=== PATIENT | female | born 1945 | race Caucasian/White ===

== ENCOUNTER 2019-07-27 18:02 | Inpatient (IN) | payer MEDICARE, BC ==
[2019-07-27] MEDS ORDERED: Ondansetron ODT 4 MG TAB PO PRN (20:16)
[2019-07-27] MEDS ORDERED: Simethicone Chewable 80 MG TAB PO PRN (20:52)
[2019-07-27] MEDS ORDERED: Non-Formulary Item 1 EACH (Acetaminophen [Tylenol] 650 MG) PO PRN (20:52)
[2019-07-27] MEDS: traMADol HCl 50 MG TAB PO PRN (21:22)
[2019-07-27] MEDS: Famotidine 20 MG TAB PO SCH (21:25)
[2019-07-27] MEDS: ALPRAZolam 0.25 MG TAB PO PRN (21:25)
--- NOTE | 2019-07-28 01:44 | HP ---
HISTORY OF PRESENT ILLNESS: The patient is a 73-year-old white female with a long history of multiple medical problems including atrial fibrillation, ischemic cardiomyopathy, systolic congestive heart failure, who has had a several month history of multiple episodes of lower GI hemorrhage requiring transfusion and ultimately requiring a colonoscopy with complication of perforation of the sigmoid colon with subsequent feculent peritonitis requiring emergency surgery, a sigmoid colostomy and a wound VAC placement. She did develop septic shock and required a long hospitalization, but recovered from this and was transferred to [facility], where she did cooperate with therapy and was improving with adequate wound care and colostomy care. She was discharged home; however, on her routine medications of furosemide 40 mg daily and warfarin 2 mg daily. She did, however, developed significant exacerbation of her congestive heart failure requiring readmission to [facility] for IV diuresis with subsequent significant diuresis improvement in her dyspnea, but with worsening of her significant deconditioning. She has not had any further episodes of sepsis and has had a well-functioning colostomy and wound VAC. She is admitted to [facility] at this time for continued PT/OT and wound care. PAST MEDICAL HISTORY: As mentioned above, remarkable for atrial fibrillation, coronary artery disease, status post multiple stents. Systolic heart failure with ejection fraction 30%. Diverticulitis. Breast cancer. PAST SURGICAL HISTORY: Positive for defibrillator placement, aortic valve replacement, and multiple coronary stents. ALLERGIES: SHE IS ALLERGIC TO CODEINE AND VANCOMYCIN. REVIEW OF SYSTEMS: HEENT: She denies any headaches, dizziness, change in vision, hearing hoarseness, or dysphagia. PULMONARY: She denies cough, sputum production, pneumonia, asthma, or tuberculosis. CARDIOVASCULAR: She denies any chest pain. Has 1 to 2 pillow orthopnea. Has persistent, but decreased edema. Has noticed no palpitations. GASTROINTESTINAL: She denies nausea, or vomiting. She has minimal abdominal pain, has well-functioning colostomy. GENITOURINARY: She denies dysuria, hematuria, or nocturia. MUSCULOSKELETAL: She has significant weakness of all extremities with inability to maintain ADLs. PHYSICAL EXAMINATION: GENERAL: The patient is a morbidly obese white female, lying in bed, on oxygen, in no distress at rest. Oriented x3 and cooperative. VITAL SIGNS: Showed to have a blood pressure of 110/60, pulse is 75. She is afebrile. HEENT: Pupils are equal, round, and reactive to light and accommodation. Sclerae anicteric. Conjunctivae pale. Oral mucous membranes well hydrated. NECK: Supple. There are no nodes or masses. JVP is not elevated. LUNGS: Clear with decreased breath sounds in the bases. CARDIAC: Showed regular rhythm. There is a prosthetic aortic valve sound with slight murmur. ABDOMEN: Soft with minimal left lower quadrant tenderness. Well-functioning sigmoid colostomy and a small wound VAC medial to this. MUSCULOSKELETAL: There is significant obesity and edema of all extremities. She is unable to abduct her left shoulder, status post recent shoulder surgery. NEUROLOGIC: Cranial nerves intact. Deep tendon reflex 2+ and equal. Absent Babinski. LABORATORY DATA: EKG pending. Medication reconciliation has not been done as of yet. ASSESSMENT: 1. Ischemic cardiomyopathy with soft systolic congestive heart failure, 30% ejection fraction with recent decompensation, now on oral torsemide after IV torsemide with significant diuresis. 2. History of aortic valve replacement, on warfarin anticoagulation. 3. History of atrial fibrillation with apparent regular rhythm at this time. 4. Well-functioning colostomy with minimal tenderness. No evidence of bleeding. 5. Abdominal wound with wound VAC in place, functioning well. Minimal drainage. 6. Coronary artery disease with no evidence of recurrent angina. 7. History of diverticulitis. 8. History of breast cancer. PLAN: 1. Continue PT, OT and wound care. 2. Continue home medications and monitor for exacerbation of CHF. 3. Obtain baseline medications, labs in the morning as well as EKG. 4. Continue anticoagulation and titrate to a PT/INR of 2.5 to 3.5, aortic valve replacement. 5. Continue oxygen as needed, but as the patient is taking this at home, we will attempt to wean slowly. Job ID: [id number]
[2019-07-28] MEDS: traMADol HCl 50 MG TAB PO PRN ×3 (03:48→21:33)
[2019-07-28] MEDS: Acetaminophen 325 MG TAB PO PRN ×2 (03:49→17:39)
[2019-07-28] MEDS: Levothyroxine Sodium 50 MCG TAB PO SCH (05:37)
[2019-07-28 05:38] LABS: INR-International Normal Ratio 2.2; Prothrombin Time 23.9 SEC (12.0-14.7)
[2019-07-28 05:45] LABS: #Basophils 0.1 thou/uL (0.0-0.2); #Eosinphils 0.1 thou/uL (0.0-0.7); #Lymphocytes 0.7 thou/uL (1.20-3.40); #Monocytes 0.9 thou/uL (0.11-0.59); #Neutrophils 5.1 thou/uL (1.40-6.50); %Basophils 1.5 % (0.0-1.0); %Eosinophils 1.9 % (0.0-10.0); %Lymphocytes 10.2 % (21.0-51.0); %Monocytes 13.1 % (0.0-10.0); %Neutrophils 73.3 % (42.0-75.0); Anisocytosis MODERATE=16-30 cells (100X) (0-5/hpf); Hemoglobin 8.2 g/dL (12.0-16.0); Hypochromia MODERATE=16-30 cells (100X) (0-5/hpf); MDiff Complete? YES; Mean Corpuscular HGB CONC 28.7 g/dL (32.0-36.0); Mean Corpuscular Hemoglobin 23.4 pg (27.0-31.0); Mean Corpuscular Volume 81.5 fL (78.0-98.0); Mean Platelet Volume 4.8 fL (7.4-10.4); Platelet Count 371 thou/uL (130-400); Platelet Morphology Comment Appears Adequate; RBC Distribution Width 19.6 % (11.5-14.5); Red Blood Cell (RBC) Count 3.48 mill/uL (4.20-5.40); White Blood Cell (WBC) Count 6.9 thou/uL (4.8-10.8)
[2019-07-28 05:47] LABS: ALT (SGPT) 17 U/L (8-55); AST (SGOT) 22 U/L (5-34); Albumin 3.8 g/dL (3.4-4.8); Alkaline Phosphatase 103 U/L (40-110); Anion Gap 16 mmol/L (10-20); BUN (Urea Nitrogen) 13 mg/dL (9.8-20.1); Bilirubin, Total 0.5 mg/dL (0.2-1.2); Calc. Creatinine Clearance 83 mL/min (70-130); Calcium 9.4 mg/dL (7.8-10.44); Carbon Dioxide 30 mmol/L (23-31); Chloride 95 mmol/L (98-107); Estimated GFR-MDRD 67; Globulin 2.8 g/dL (2.4-3.5); Glucose 109 mg/dL (83-110); Potassium 3.9 mmol/L (3.5-5.1); Protein, Total 6.6 g/dL (6.0-8.3); Sodium 137 mmol/L (136-145)
[2019-07-28] MEDS: Ascorbic Acid 500 mg Chewable Tablet PO SCH (09:10)
[2019-07-28] MEDS: Multivitamin W/ Minerals 1 TAB PO SCH (09:11)
[2019-07-28] MEDS: Calcium Carbonate + Vit D 1 TAB PO SCH (09:11)
[2019-07-28] MEDS: Potassium Chloride 10 MEQ TAB PO SCH (09:11)
[2019-07-28] MEDS: Ferrous Sulfate 325 MG TAB PO SCH (09:12)
[2019-07-28] MEDS: Famotidine 20 MG TAB PO SCH ×2 (09:12→20:15)
[2019-07-28] MEDS: Isosorbide Mononitrate (ER) 30 MG TAB PO SCH (09:12)
[2019-07-28] MEDS: Magnesium Oxide 400 MG TAB PO SCH (09:12)
[2019-07-28] MEDS: Cyanocobalamin (Vitamin B-12) 1,000 MCG TAB PO SCH (09:12)
--- NOTE | 2019-07-28 10:49 | RAD ---
Exam: Chest 2 views: HISTORY: Congestive heart failure. FINDINGS: Right-sided ICD. Postop midline sternotomy and valvular replacement. Cardiomegaly with bilateral vascular congestion and interstitial edema and small pleural effusions ev idence for congestive heart failure. Postop left reversed total arthroplasty. Marked arthrosis right glenohumeral joint. IMPRESSION: Evidence for congestive heart failure with congestion, edema, and small pleural effusions. Consider s hort-term follow-up. No old studies.
[2019-07-28] MEDS: Warfarin Sodium 2 MG TAB PO SCH (17:33)
--- NOTE | 2019-07-28 20:21 | PRG ---
DATE OF SERVICE: 07/28/2019 SUBJECTIVE: The patient feels well, cooperating with therapy today with stable dyspnea. She has had no chest pain, palpitation, or abdominal pain. OBJECTIVE: VITAL SIGNS: Show blood pressure is 131/64, pulse is 110, temperature 97, respirations 22, O2 saturations 96% on 2 L. LUNGS: Show decreased breath sounds at bases with few crackles. CARDIAC: Shows irregularly irregular rhythm. PMI in the fifth intercostal space 1 cm medial to the midclavicular line. ABDOMEN: Soft and nontender. Wound VAC is functioning well. Ostomy is functioning well. SKIN/EXTREMITIES: Show 1+ edema. The patient did cooperate with therapy today, but is still very weak and unable to walk. LABORATORY DATA: Chest x-ray shows pulmonary congestion and cardiomegaly. Laboratory shows white count 6900, hematocrit 28, hemoglobin 8. Sodium 137, potassium 3.9, chloride 99, bicarb 30, BUN 13, creatinine 0.83, glucose 109, calcium 9.4, AST 22, ALT 17. BNP 892. PT and INR are 23 and 2.2. ASSESSMENT: 1. Resolving peritonitis, status post wound VAC with open wound, healing off antibiotics. 2. Atrial fibrillation with rate control and adequate anticoagulation. 3. Colostomy after sigmoid colectomy for sigmoid perforation and bleeding. 4. Ischemic cardiomyopathy with systolic congestive heart failure with recent decompensation, now on oral torsemide that has not been restarted here, so we will restart it. PLAN: 1. Torsemide 20 mg p.o. b.i.d. 2. BMP in the a.m. 3. Continue PT/OT and wound VAC care. 4. Continue ostomy care. Job ID: [id number]
[2019-07-28] MEDS: ALPRAZolam 0.25 MG TAB PO PRN (21:33)
[2019-07-28] MEDS: tiZANidine HCl 4 MG TAB PO PRN (21:33)
[2019-07-29] MEDS: Levothyroxine Sodium 50 MCG TAB PO SCH (05:45)
[2019-07-29 05:46] LABS: Anion Gap 14 mmol/L (10-20); BUN (Urea Nitrogen) 16 mg/dL (9.8-20.1); Calc. Creatinine Clearance 90 mL/min (70-130); Calcium 9.1 mg/dL (7.8-10.44); Carbon Dioxide 31 mmol/L (23-31); Chloride 97 mmol/L (98-107); Estimated GFR-MDRD 74; Glucose 107 mg/dL (83-110); Sodium 138 mmol/L (136-145)
[2019-07-29] MEDS: Isosorbide Mononitrate (ER) 30 MG TAB PO SCH (08:03)
[2019-07-29] MEDS: Cyanocobalamin (Vitamin B-12) 1,000 MCG TAB PO SCH (08:03)
[2019-07-29] MEDS: Ferrous Sulfate 325 MG TAB PO SCH (08:03)
[2019-07-29] MEDS: Ascorbic Acid 500 mg Chewable Tablet PO SCH (08:03)
[2019-07-29] MEDS: Multivitamin W/ Minerals 1 TAB PO SCH (08:03)
[2019-07-29] MEDS: Potassium Chloride 10 MEQ TAB PO SCH (08:04)
[2019-07-29] MEDS: Calcium Carbonate + Vit D 1 TAB PO SCH (08:04)
[2019-07-29] MEDS: Famotidine 20 MG TAB PO SCH ×2 (08:04→20:47)
[2019-07-29] MEDS: Magnesium Oxide 400 MG TAB PO SCH (08:04)
[2019-07-29] MEDS: Torsemide 20 MG TAB PO SCH ×2 (08:09→14:32)
[2019-07-29] MEDS: traMADol HCl 50 MG TAB PO PRN ×2 (17:13→23:19)
[2019-07-29] MEDS: Warfarin Sodium 2 MG TAB PO SCH (17:14)
[2019-07-30] MEDS: ALPRAZolam 0.25 MG TAB PO PRN (03:09)
[2019-07-30] MEDS: Levothyroxine Sodium 50 MCG TAB PO SCH (05:49)
[2019-07-30 05:56] LABS: Prothrombin Time 22.2 SEC (12.0-14.7)
--- NOTE | 2019-07-30 07:48 | PRG ---
DATE OF SERVICE: 07/29/2019 SUBJECTIVE: The patient feels well. She has been walking in the farmer with her transferring to bed with some dyspnea. Did not have her therapy today because of a conflict with her personal needs on the phone talking to family. She is having minimal abdominal pain. She has had no change of the wound VAC today, but is not having hardly any output. Colostomy is functioning well. She is having questions about need for IV or oral antibiotics. She was given oral antibiotics prior to discharge and picked those up on the pre-attempt that she may be going home prior to the transfer, but when she was transferred, hospitalist said no IV or oral antibiotics and that is not on the transfer note. She is also going to call her surgeon to determine when follow up with the surgeon is requested. LABORATORY DATA: Shows her sodium 138, potassium 4.0, chloride 97, bicarb 31, BUN 16, and creatinine 0.76. PT is 22 and INR is 2.0. OBJECTIVE: VITAL SIGNS: Show blood pressure 108/71, temperature is 96, pulse 109, respirations 20, and O2 saturations 99% on 2 L. LUNGS: Show decreased breath sounds at bases, but no rales or rhonchi. CARDIAC: Shows irregularly irregular rhythm. ABDOMEN: Soft and nontender. Well-functioning colostomy and wound VAC with minimal output. There is trace edema. ASSESSMENT: 1. Resolving feculent peritonitis status post perforated colon and need of sigmoid colostomy and wound VAC, both functioning well at this time. She will ask her surgeon about need for further antibiotics and follow up tomorrow. 2. Atrial fibrillation with adequate rate control and anticoagulation. 3. Stage 4 congestive heart failure, status post fibrillator, who is on gentle diuresis and is tolerating PT with no chest pain and decreasing shortness of breath. 4. Ischemic cardiomyopathy with no evidence of recurrent ischemia. PLAN: 1. Continue gentle diuresis with torsemide 20 twice daily. Follow BMP. 2. Continue ostomy care. 3. Continue PT, OT, and wound VAC care. 4. Continue rate control and anticoagulation of atrial fibrillation. 5. Have the patient discussed with surgeon about need for antibiotics and follow up with the patient. Job ID: [id number]
[2019-07-30] MEDS: Potassium Chloride 10 MEQ TAB PO SCH (09:21)
[2019-07-30] MEDS: Calcium Carbonate + Vit D 1 TAB PO SCH (09:21)
[2019-07-30] MEDS: Ascorbic Acid 500 mg Chewable Tablet PO SCH (09:22)
[2019-07-30] MEDS: Multivitamin W/ Minerals 1 TAB PO SCH (09:22)
[2019-07-30] MEDS: Magnesium Oxide 400 MG TAB PO SCH (09:22)
[2019-07-30] MEDS: Ferrous Sulfate 325 MG TAB PO SCH (09:25)
[2019-07-30] MEDS: Isosorbide Mononitrate (ER) 30 MG TAB PO SCH (09:25)
[2019-07-30] MEDS: Cyanocobalamin (Vitamin B-12) 1,000 MCG TAB PO SCH (09:25)
[2019-07-30] MEDS: Famotidine 20 MG TAB PO SCH ×2 (09:26→20:49)
[2019-07-30] MEDS: Torsemide 20 MG TAB PO SCH ×2 (09:31→14:50)
[2019-07-30] MEDS: Acetaminophen 325 MG TAB PO PRN (12:40)
[2019-07-30] MEDS: traMADol HCl 50 MG TAB PO PRN ×2 (12:40→18:55)
[2019-07-30] MEDS: Warfarin Sodium 2 MG TAB PO SCH (17:52)
[2019-07-30] MEDS: Melatonin 3 MG TAB PO PRN (20:49)
[2019-07-31] MEDS: Levothyroxine Sodium 50 MCG TAB PO SCH (05:04)
[2019-07-31] MEDS: traMADol HCl 50 MG TAB PO PRN ×2 (05:22→20:27)
[2019-07-31 05:49] LABS: INR-International Normal Ratio 2.2
--- NOTE | 2019-07-31 07:00 | PRG ---
DATE OF SERVICE: 07/30/2019 SUBJECTIVE: The patient feels well, up, moving around in the room, walking with therapy with improving dyspnea. She has had no abdominal pain, has had a good appetite. Wound care therapist states that wound VAC is not functioning as there is significant feculent material in the wound, which could not be drained. Discussed the situation with her surgeon, Dr. Lang, who felt like dressing would benefit and that he would follow her up in 5 days. Surgeon also recommended that she did not require antibiotic treatment unless she showed signs of infection. OBJECTIVE: VITAL SIGNS: Her temperature is 98.6, pulse is 93, respirations 20, O2 saturation is 93% on 2 L, and blood pressure is 126/74. LUNGS: Show decreased breath sounds in the bases with only a few rales. CARDIAC: Shows a regular rhythm. ABDOMEN: Soft, nontender with wound VAC in place. Colostomy functioning well. SKIN/EXTREMITIES: Display 1 to 2+ edema. LABORATORY DATA: PT and INR therapeutic and stable at 22 and 2. ASSESSMENT: 1. Resolving abdominal wound, but with persistent slough and we will continue wet-to-dry and follow up with her surgeon, Dr. Lang on August 05. 2. Diastolic heart failure, appears to be slowly improving with gentle diuresis with stable renal function. We will check BNP, BMP in the a.m. 3. Deconditioning, improving with therapy and we will continue PT. 4. Atrial fibrillation with rate control and anticoagulation and we will change PT/INR to 3 times weekly. Job ID: [id number]
[2019-07-31 07:30] LABS: Anion Gap 19 mmol/L (10-20); BUN (Urea Nitrogen) 16 mg/dL (9.8-20.1); Calc. Creatinine Clearance 59 mL/min (70-130); Calcium 9.1 mg/dL (7.8-10.44); Carbon Dioxide 31 mmol/L (23-31); Chloride 91 mmol/L (98-107); Estimated GFR-MDRD 46; Glucose 111 mg/dL (83-110); Potassium 3.3 mmol/L (3.5-5.1); Sodium 138 mmol/L (136-145)
[2019-07-31] MEDS: Ondansetron ODT 4 MG TAB PO PRN (08:35)
[2019-07-31] MEDS: Calcium Carbonate + Vit D 1 TAB PO SCH (09:19)
[2019-07-31] MEDS: Magnesium Oxide 400 MG TAB PO SCH (09:20)
[2019-07-31] MEDS: Potassium Chloride 10 MEQ TAB PO SCH (09:20)
[2019-07-31] MEDS: Ascorbic Acid 500 mg Chewable Tablet PO SCH (09:20)
[2019-07-31] MEDS: Famotidine 20 MG TAB PO SCH ×2 (09:21→20:26)
[2019-07-31] MEDS: Ferrous Sulfate 325 MG TAB PO SCH (09:21)
[2019-07-31] MEDS: Cyanocobalamin (Vitamin B-12) 1,000 MCG TAB PO SCH (09:21)
[2019-07-31] MEDS: Isosorbide Mononitrate (ER) 30 MG TAB PO SCH (09:21)
[2019-07-31] MEDS: Multivitamin W/ Minerals 1 TAB PO SCH (09:21)
[2019-07-31] MEDS: Torsemide 20 MG TAB PO SCH ×2 (09:29→14:45)
[2019-07-31] MEDS: Melatonin 3 MG TAB PO PRN (20:27)
[2019-07-31] MEDS: ALPRAZolam 0.25 MG TAB PO PRN (23:41)
[2019-08-01] MEDS: Levothyroxine Sodium 50 MCG TAB PO SCH (05:05)
[2019-08-01 05:48] LABS: Anion Gap 18 mmol/L (10-20); BUN (Urea Nitrogen) 18 mg/dL (9.8-20.1); Calc. Creatinine Clearance 58 mL/min (70-130); Carbon Dioxide 30 mmol/L (23-31); Chloride 92 mmol/L (98-107); Estimated GFR-MDRD 44; Glucose 104 mg/dL (83-110); Potassium 3.3 mmol/L (3.5-5.1); Sodium 137 mmol/L (136-145)
--- NOTE | 2019-08-01 06:13 | PRG ---
DATE OF SERVICE: 07/31/2019 SUBJECTIVE: The patient feels well, has been walking in farmer with , in the process of having a wound change at this time and shows a small tunnel wound approximately 2 cm in depth, but only 0.5 cm to 1 cm in width with no surrounding erythema. OBJECTIVE: LUNGS: Clear. CARDIAC: Displays irregular rhythm. ABDOMEN: Soft, nontender, with above-mentioned wound VAC in place and colostomy functioning well. SKIN/EXTREMITIES: Show no edema. ASSESSMENT: 1. Resolving abdominal wound, persistent sloughing with culture showing gram-negative edelmira, but on instruction of her surgeon, Dr. Lang, we will not start her on antibiotics. There is no evidence of surrounding infection and we will follow up with her surgeon on August 05. 2. Diastolic heart failure, appears to be improving with gentle diuresis with increased exercise tolerance, but BNP is still elevated at 945. Sodium is 138, potassium is down to 3.3, creatinine is up to 1.16 with a GFR down from 74 to 46, glucose 111, calcium 9.1, and bicarb 31. So, we will change torsemide to her baseline furosemide that she had at home after holding the torsemide till tomorrow and repeating renal function. We will also repeat chest x-ray tomorrow to determine improvement in congestive heart failure and pulmonary edema despite persistent elevated BNP. Finally, we will change PT/INR to Friday, Friday, and Friday and repeat on Friday. Job ID: [id number]
[2019-08-01] MEDS: Magnesium Oxide 400 MG TAB PO SCH (08:50)
[2019-08-01] MEDS: Calcium Carbonate + Vit D 1 TAB PO SCH (08:50)
[2019-08-01] MEDS: Cyanocobalamin (Vitamin B-12) 1,000 MCG TAB PO SCH (08:50)
[2019-08-01] MEDS: Potassium Chloride 10 MEQ TAB PO SCH (08:50)
[2019-08-01] MEDS: Isosorbide Mononitrate (ER) 30 MG TAB PO SCH (08:51)
[2019-08-01] MEDS: Ferrous Sulfate 325 MG TAB PO SCH (08:51)
[2019-08-01] MEDS: Multivitamin W/ Minerals 1 TAB PO SCH (08:51)
[2019-08-01] MEDS: Famotidine 20 MG TAB PO SCH ×2 (08:51→20:22)
[2019-08-01] MEDS: Ascorbic Acid 500 mg Chewable Tablet PO SCH (09:04)
--- NOTE | 2019-08-01 09:40 | RAD ---
EXAM: Chest Two Views 08/01/2019 9:37 AM HISTORY: CHF COMPARISON: July 28, 2019 FINDINGS: Heart: Mildly enlarged Pulmonary vessels: Moderate pulmonary vascular congestion with perihilar edema Costophrenic angles: Clear. Lungs: There is mild perihilar edema. Pneumothorax: None. Osseous structures:Stable chronic osseous changes and partial visualization of a left total shoulder replacement. Additional findings: Stable AICD IMPRESSION: Persistent changes of mild CHF.
[2019-08-01] MEDS: ALPRAZolam 0.25 MG TAB PO PRN (09:43)
[2019-08-01] MEDS: Warfarin Sodium 2 MG TAB PO SCH (16:42)
[2019-08-01] MEDS: Melatonin 3 MG TAB PO PRN (20:22)
[2019-08-01] MEDS: traMADol HCl 50 MG TAB PO PRN (20:22)
[2019-08-02] MEDS: ALPRAZolam 0.25 MG TAB PO PRN ×2 (00:15→16:31)
[2019-08-02] MEDS: Levothyroxine Sodium 50 MCG TAB PO SCH (05:22)
[2019-08-02 05:37] LABS: INR-International Normal Ratio 1.9; Prothrombin Time 21.9 SEC (12.0-14.7)
[2019-08-02] MEDS: Isosorbide Mononitrate (ER) 30 MG TAB PO SCH (09:55)
[2019-08-02] MEDS: Cyanocobalamin (Vitamin B-12) 1,000 MCG TAB PO SCH (09:55)
[2019-08-02] MEDS: Multivitamin W/ Minerals 1 TAB PO SCH (09:55)
[2019-08-02] MEDS: Magnesium Oxide 400 MG TAB PO SCH (09:55)
[2019-08-02] MEDS: Famotidine 20 MG TAB PO SCH ×2 (09:55→20:54)
[2019-08-02] MEDS: Ferrous Sulfate 325 MG TAB PO SCH (09:55)
[2019-08-02] MEDS: Potassium Chloride 10 MEQ TAB PO SCH (09:55)
[2019-08-02] MEDS: Calcium Carbonate + Vit D 1 TAB PO SCH (09:55)
[2019-08-02] MEDS: Ascorbic Acid 500 mg Chewable Tablet PO SCH (10:10)
[2019-08-02] MEDS: Ondansetron ODT 4 MG TAB PO PRN (12:08)
[2019-08-02] MEDS: Warfarin Sodium 2 MG TAB PO SCH (17:58)
[2019-08-02] MEDS: Melatonin 3 MG TAB PO PRN (20:54)
[2019-08-02] MEDS: traMADol HCl 50 MG TAB PO PRN (20:55)
[2019-08-03] MEDS: traMADol HCl 50 MG TAB PO PRN ×2 (02:59→20:52)
[2019-08-03] MEDS: Levothyroxine Sodium 50 MCG TAB PO SCH (06:08)
--- NOTE | 2019-08-03 07:44 | PRG ---
DATE OF SERVICE: 08/02/2019 SUBJECTIVE: The patient feels well. No complaints. Cooperating with therapy. She states she does feel weak when she cooperates, but today was able to walk 110 feet with slow walk. Her ostomy is functioning well. Her wound is being treated with wet-to-dry dressing and she is having followup with her surgeon later this week and she feels she is improving. OBJECTIVE: VITAL SIGNS: Shows temperature is 97, pulse 84, respirations 20, O2 saturations 94% on room air, and blood pressure 121/67. LUNGS: Clear. CARDIAC: Shows irregular rhythm. ABDOMEN: Soft and nontender. Does show a well-functioning colostomy and an abdominal wound wet-to-dry dressing with minimal drainage. SKIN AND EXTREMITIES: Showed no edema. LABORATORY DATA: PT and INR are slightly subtherapeutic at 21 and 1.9. ASSESSMENT AND PLAN: 1. Resolving peritonitis secondary to perforated colon from colonoscopy after evaluation of severe bleeding. 2. Atrial fibrillation with rate control and anticoagulation with slightly subtherapeutic INR. 3. Systolic congestive heart failure, appears to be improving slightly with increasing exercise tolerance on gentle diuresis. 4. Chronic kidney disease, stage 3, appears to be stable after worsening with diuresis and we will continue to monitor closely. Job ID: [id number]
[2019-08-03] MEDS: Calcium Carbonate + Vit D 1 TAB PO SCH (08:59)
[2019-08-03] MEDS: Famotidine 20 MG TAB PO SCH ×2 (09:00→20:51)
[2019-08-03] MEDS: Ferrous Sulfate 325 MG TAB PO SCH (09:00)
[2019-08-03] MEDS: Ascorbic Acid 500 mg Chewable Tablet PO SCH (09:00)
[2019-08-03] MEDS: Cyanocobalamin (Vitamin B-12) 1,000 MCG TAB PO SCH (09:00)
[2019-08-03] MEDS: Magnesium Oxide 400 MG TAB PO SCH (09:00)
[2019-08-03] MEDS: Potassium Chloride 10 MEQ TAB PO SCH (09:00)
[2019-08-03] MEDS: Multivitamin W/ Minerals 1 TAB PO SCH (09:00)
[2019-08-03] MEDS: Isosorbide Mononitrate (ER) 30 MG TAB PO SCH (09:01)
[2019-08-03 10:51] LABS: INR-International Normal Ratio 2.1
[2019-08-03 10:59] LABS: ALT (SGPT) 84 U/L (8-55); AST (SGOT) 121 U/L (5-34); Albumin 3.6 g/dL (3.4-4.8); Alkaline Phosphatase 117 U/L (40-110); Anion Gap 17 mmol/L (10-20); BUN (Urea Nitrogen) 23 mg/dL (9.8-20.1); Bilirubin, Total 0.7 mg/dL (0.2-1.2); Calc. Creatinine Clearance 81 mL/min (70-130); Calcium 9.5 mg/dL (7.8-10.44); Carbon Dioxide 30 mmol/L (23-31); Chloride 92 mmol/L (98-107); Estimated GFR-MDRD 65; Globulin 2.9 g/dL (2.4-3.5); Glucose 119 mg/dL (83-110); Potassium 3.6 mmol/L (3.5-5.1); Protein, Total 6.5 g/dL (6.0-8.3); Sodium 135 mmol/L (136-145)
[2019-08-03 11:03] LABS: #Basophils 0.1 thou/uL (0.0-0.2); #Eosinphils 0.1 thou/uL (0.0-0.7); #Lymphocytes 0.9 thou/uL (1.20-3.40); %Basophils 1.1 % (0.0-1.0); %Eosinophils 1.3 % (0.0-10.0); %Lymphocytes 9.5 % (21.0-51.0); %Monocytes 11.1 % (0.0-10.0); Hemoglobin 9.2 g/dL (12.0-16.0); Mean Corpuscular HGB CONC 29.3 g/dL (32.0-36.0); Mean Corpuscular Hemoglobin 23.9 pg (27.0-31.0); Mean Corpuscular Volume 81.6 fL (78.0-98.0); Mean Platelet Volume 4.8 fL (7.4-10.4); Platelet Count 382 thou/uL (130-400); RBC Distribution Width 20.7 % (11.5-14.5); Red Blood Cell (RBC) Count 3.83 mill/uL (4.20-5.40); White Blood Cell (WBC) Count 9.1 thou/uL (4.8-10.8)
[2019-08-03] MEDS: ALPRAZolam 0.25 MG TAB PO PRN (15:21)
[2019-08-03] MEDS ORDERED: Warfarin Sodium 3 MG TAB PO SCH (17:00)
[2019-08-03] MEDS: Melatonin 3 MG TAB PO PRN (20:52)
[2019-08-04] MEDS: Levothyroxine Sodium 50 MCG TAB PO SCH (05:50)
[2019-08-04] MEDS: Ascorbic Acid 500 mg Chewable Tablet PO SCH (08:23)
[2019-08-04] MEDS: Famotidine 20 MG TAB PO SCH ×2 (08:24→21:04)
[2019-08-04] MEDS: Cyanocobalamin (Vitamin B-12) 1,000 MCG TAB PO SCH (08:24)
[2019-08-04] MEDS: Ferrous Sulfate 325 MG TAB PO SCH (08:24)
[2019-08-04] MEDS: Calcium Carbonate + Vit D 1 TAB PO SCH (08:24)
[2019-08-04] MEDS: Multivitamin W/ Minerals 1 TAB PO SCH (08:25)
[2019-08-04] MEDS: Isosorbide Mononitrate (ER) 30 MG TAB PO SCH (08:25)
[2019-08-04] MEDS: Magnesium Oxide 400 MG TAB PO SCH (08:25)
[2019-08-04] MEDS: Potassium Chloride 10 MEQ TAB PO SCH (08:25)
[2019-08-04] MEDS: tiZANidine HCl 4 MG TAB PO PRN (13:28)
[2019-08-04] MEDS: Warfarin Sodium 2 MG TAB PO SCH (17:25)
[2019-08-04] MEDS: Melatonin 3 MG TAB PO PRN (21:04)
[2019-08-05] MEDS: Levothyroxine Sodium 50 MCG TAB PO SCH (05:26)
[2019-08-05 05:31] LABS: INR-International Normal Ratio 2.2; Prothrombin Time 24.5 SEC (12.0-14.7)
[2019-08-05] MEDS: Cyanocobalamin (Vitamin B-12) 1,000 MCG TAB PO SCH (08:31)
[2019-08-05] MEDS: Calcium Carbonate + Vit D 1 TAB PO SCH (08:31)
[2019-08-05] MEDS: Ferrous Sulfate 325 MG TAB PO SCH (08:32)
[2019-08-05] MEDS: Famotidine 20 MG TAB PO SCH ×2 (08:32→20:36)
[2019-08-05] MEDS: Magnesium Oxide 400 MG TAB PO SCH (08:34)
[2019-08-05] MEDS: Isosorbide Mononitrate (ER) 30 MG TAB PO SCH (08:34)
[2019-08-05] MEDS: Multivitamin W/ Minerals 1 TAB PO SCH (08:35)
[2019-08-05] MEDS: Potassium Chloride 10 MEQ TAB PO SCH (08:36)
[2019-08-05] MEDS: ASCORBIC ACID 100 MG PO SCH (08:50)
[2019-08-05] MEDS: traMADol HCl 50 MG TAB PO PRN ×2 (14:04→20:36)
[2019-08-05] MEDS: Acetaminophen 325 MG TAB PO PRN ×2 (14:07→20:36)
[2019-08-05] MEDS: Warfarin Sodium 2 MG TAB PO SCH (17:47)
[2019-08-05] MEDS: Melatonin 3 MG TAB PO PRN (20:36)
[2019-08-06] MEDS: traMADol HCl 50 MG TAB PO PRN ×3 (02:45→21:52)
[2019-08-06] MEDS: Acetaminophen 325 MG TAB PO PRN ×2 (02:45→21:52)
[2019-08-06 05:20] LABS: INR-International Normal Ratio 2.8; Prothrombin Time 29.2 SEC (12.0-14.7)
[2019-08-06] MEDS: Levothyroxine Sodium 50 MCG TAB PO SCH (05:45)
[2019-08-06] MEDS: Ondansetron ODT 4 MG TAB PO PRN ×2 (08:22→18:14)
[2019-08-06] MEDS: Isosorbide Mononitrate (ER) 30 MG TAB PO SCH (08:23)
[2019-08-06] MEDS: Cyanocobalamin (Vitamin B-12) 1,000 MCG TAB PO SCH (08:23)
[2019-08-06] MEDS: Multivitamin W/ Minerals 1 TAB PO SCH (08:23)
[2019-08-06] MEDS: Calcium Carbonate + Vit D 1 TAB PO SCH (08:23)
[2019-08-06] MEDS: Potassium Chloride 10 MEQ TAB PO SCH (08:23)
[2019-08-06] MEDS: Magnesium Oxide 400 MG TAB PO SCH (08:23)
[2019-08-06] MEDS: Ferrous Sulfate 325 MG TAB PO SCH (08:23)
[2019-08-06] MEDS: Famotidine 20 MG TAB PO SCH ×2 (08:23→20:24)
[2019-08-06] MEDS: ASCORBIC ACID 100 MG PO SCH (08:24)
[2019-08-06] MEDS: Warfarin Sodium 2 MG TAB PO SCH (17:46)
--- NOTE | 2019-08-06 18:21 | PRG ---
DATE OF SERVICE: 08/03/2019 SUBJECTIVE: The patient feels well, has been working with therapy, somewhat fatigued, but is improving. Her wound has been clean today, wet-to-dry dressing with increased drainage after the wound was manipulated with purulent thick drainage. No evidence of erythema around the wound. LABORATORY DATA: Showed white count 9100, hematocrit 31, hemoglobin 9. Sodium is 135, potassium 3.6, chloride 92, bicarb 30, BUN 23, creatinine 0.86, glucose 119, calcium 9.5. BNP 1080, which is up from 945. PT/INR increasing to 2.1 from 1.9. We will monitor closely. OBJECTIVE: LUNGS: Show decreased breath sounds at bases, only few rales. CARDIAC: Shows irregular rhythm. ABDOMEN: Soft and nontender with functioning colostomy and wet-to-dry dressing over the wound. ASSESSMENT: 1. Resolving peritonitis with open wound, being treated with wet-to-dry dressing, but may require further debridement and is due to see surgeon in 2 days. 2. Atrial fibrillation with rate control on anticoagulation. Continue to monitor closely. 3. Congestive heart failure, appears to be clinically improving, but still shows elevated BNP, and we will continue diuresis as laboratories show in fact improving creatinine and renal function with diuresis. PLAN: 1. Continue PT, OT, and wound care. 2. Continue furosemide 40 mg daily. 3. Continue rate control and anticoagulation of atrial fibrillation, and continue dose of warfarin that she was taking previously, 4 mg 6 days a week and 6 mg on Friday. Job ID: [id number]
--- NOTE | 2019-08-06 18:23 | PRG ---
DATE OF SERVICE: 08/05/2019 SUBJECTIVE: The patient is somewhat sore. She has been debrided by her surgeon today with significant amount of purulent drainage and repacking of her wound. She has had no problems with shortness of breath, chest pain, fever, or chills, but is somewhat fatigued by today's treatment. OBJECTIVE: VITAL SIGNS: Shows her temperature of 97, pulse 70, respirations 18, O2 saturations 96% on half a liter, and blood pressure 126/65. LUNGS: Clear. CARDIAC: Showed regular rhythm. ABDOMEN: Soft and nontender with functioning colostomy and wound packed with wet-to-dry. LABORATORY DATA: PT/INR is 24 and 2.2. ASSESSMENT: 1. Stable atrial fibrillation with rate control and anticoagulation, slightly worsening. 2. Diastolic heart failure decompensation, improving on furosemide with improving renal function, but persistent elevated BNP. Continue to monitor. 3. Abdominal wound, recently debrided by surgeon today. We will continue wet-to-dry dressing per his instructions. Follow up with him again next week. 4. Deconditioning, somewhat limited by her therapy and we will attempt to start again. PLAN: 1. Continue PT/OT. 2. Continue wound care with dry dressing daily. 3. Continue rate control and anticoagulation and monitor PT/INR daily and may need to adjust dose if continues to increase. 4. Deconditioning. It is somewhat stabilized and we will continue stress working again. Job ID: [id number]
--- NOTE | 2019-08-06 18:29 | PRG ---
DATE OF SERVICE: 08/04/2019 SUBJECTIVE: The patient feels well. Awaiting appointment with surgeon tomorrow. She has been cooperating with therapy and with wound care. She is having no particular abdominal pain. The shortness of breath appears to be stabilized and slightly improved. OBJECTIVE: VITAL SIGNS: Temperature 97.2, pulse 71, respirations 20, O2 sats 98% on 1/2 L, blood pressure 159/61. LUNGS: Decreased breath sounds at bases. CARDIAC: Examination shows regular rhythm. ABDOMEN: Soft with functioning colostomy and abdominal wound wet-to-dry dressing. No evidence of surrounding erythema. ASSESSMENT: 1. Resolving peritonitis after perforated colon, status post colostomy and abdominal wound with wet-to-dry dressing. 2. Stable atrial fibrillation with rate control, on anticoagulation and will continue previous hospitalization doses. 3. Deconditioning, improving slightly as the patient is walking 146 feet, but requiring oxygen and rest after this. 4. Resolving abdominal wound, to see surgeon tomorrow and possible need for debridement. 5. Functioning colostomy. 6. Improving congestive heart failure, on diuretic with improving renal function. 7. Improving deconditioning. PLAN: 1. Continue PT, OT and wound care. 2. Follow up with surgeon tomorrow. 3. Continue rate control and anticoagulation of atrial fibrillation. 4. Continue to monitor renal function closely. Job ID: [id number]
--- NOTE | 2019-08-06 18:46 | PRG ---
DATE OF SERVICE: 08/06/2019 SUBJECTIVE: The patient feels well, resting in bed with her with only complaint of nausea, for which she has taken some medicine as she wants to eat her supper which she states looks good to her. She is denying any shortness of breath, has been walking in the halls, and feels her dyspnea is improving greatly. She does have some soreness of her abdominal wound, but states it is tolerable. She has not noticed any palpitations or dizziness. OBJECTIVE: VITAL SIGNS: Show her temperature 97.5, pulse 70, respirations 18, O2 saturations 96% on 0.5 L, blood pressure 126/65. LUNGS: Clear. CARDIAC: Shows irregular rhythm. ABDOMEN: Soft. Well-functioning colostomy and a clean abdominal wound. ASSESSMENT: 1. Resolving peritonitis and abdominal wound after perforated colonoscopy and gastrointestinal bleed with colostomy in place and abdominal wound having wet-to-dry dressing, being followed by Dr. Lang at [facility] with debridement weekly. 2. Atrial fibrillation with adequate rate control and anticoagulation on her prehospitalization doses of 4 mg daily except for 6 on Friday, and we will continue to follow. 3. Deconditioning, improving daily. 4. Diastolic heart failure, improving with oral Lasix as the patient feels she is feeling better and is having no edema. 5. Chronic kidney disease, appears to be improving with diuresis, and we will continue diuresis and monitor. Job ID: [id number]
[2019-08-06] MEDS: ALPRAZolam 0.25 MG TAB PO PRN (20:24)
[2019-08-06] MEDS: Docusate 100 MG CAP PO SCH (20:24)
[2019-08-06] MEDS: Melatonin 3 MG TAB PO PRN (22:00)
[2019-08-07] MEDS: Levothyroxine Sodium 50 MCG TAB PO SCH (05:47)
[2019-08-07 06:05] LABS: INR-International Normal Ratio 3.3; Prothrombin Time 33.3 SEC (12.0-14.7)
[2019-08-07] MEDS: Famotidine 20 MG TAB PO SCH ×2 (10:01→21:02)
[2019-08-07] MEDS: Calcium Carbonate + Vit D 1 TAB PO SCH (10:01)
[2019-08-07] MEDS: Potassium Chloride 10 MEQ TAB PO SCH (10:01)
[2019-08-07] MEDS: Isosorbide Mononitrate (ER) 30 MG TAB PO SCH (10:01)
[2019-08-07] MEDS: Multivitamin W/ Minerals 1 TAB PO SCH (10:01)
[2019-08-07] MEDS: Ferrous Sulfate 325 MG TAB PO SCH (10:02)
[2019-08-07] MEDS: Docusate 100 MG CAP PO SCH ×2 (10:02→21:02)
[2019-08-07] MEDS: Cyanocobalamin (Vitamin B-12) 1,000 MCG TAB PO SCH (10:02)
[2019-08-07] MEDS: Magnesium Oxide 400 MG TAB PO SCH (10:02)
--- NOTE | 2019-08-07 11:36 | PRG ---
DATE OF SERVICE: 08/07/2019 SUBJECTIVE: Ms. Valles is resting in bed and denies any complaints. Her spouse is with her. I am familiar with this patient from her stay at inpatient rehabilitation. The patient is happy with her progress. She does have occasional nausea, but it has since resolved. Tolerating her p.o. intake. No further bleeding. No chest pain or shortness of breath. OBJECTIVE: VITAL SIGNS: She is afebrile. Heart rate 73, respirations 20, oxygen saturation 98% on 0.5 L, blood pressure is 124/66. CARDIOVASCULAR SYSTEM: S1 and S2 plus. RESPIRATORY SYSTEM: Normal vesicular breath sounds. ABDOMEN: Soft, obese, nontender. Bowel sounds heard in all quadrants. Abdominal wound with dressing in the midline. Colostomy site is healthy. EXTREMITIES: Without cyanosis or clubbing. Trace edema. Peripheral pulses are palpable. CENTRAL NERVOUS SYSTEM: Awake and responsive. Generalized weakness. IMPRESSION: 1. Coronary artery disease. 2. Chronic systolic congestive heart failure. 3. Improving hypoxemic respiratory failure. 4. Colonic perforation, requiring colostomy placement. 5. Open abdominal wound. 6. History of gastrointestinal bleed. PLAN: 1. Continue current medications. 2. Heart healthy diet. 3. Monitor heart rate and rhythm. 4. Titrate oxygen. 5. DVT prophylaxis. 6. Decubitus precautions. 7. Stress ulcer prophylaxis. 8. Wound care. 9. Colostomy care. 10. Physical therapy. 11. Nutritional support. 12. Routine laboratory values. Job ID: [id number]
[2019-08-07] MEDS: ALPRAZolam 0.25 MG TAB PO PRN (16:20)
[2019-08-07] MEDS: Melatonin 3 MG TAB PO PRN (21:02)
[2019-08-07] MEDS: tiZANidine HCl 4 MG TAB PO PRN (21:02)
[2019-08-08] MEDS: Levothyroxine Sodium 50 MCG TAB PO SCH (05:31)
[2019-08-08 05:40] LABS: INR-International Normal Ratio 3.4; Prothrombin Time 33.9 SEC (12.0-14.7)
[2019-08-08] MEDS: Multivitamin W/ Minerals 1 TAB PO SCH (09:33)
[2019-08-08] MEDS: Calcium Carbonate + Vit D 1 TAB PO SCH (09:33)
[2019-08-08] MEDS: Docusate 100 MG CAP PO SCH ×2 (09:33→20:11)
[2019-08-08] MEDS: Magnesium Oxide 400 MG TAB PO SCH (09:34)
[2019-08-08] MEDS: Famotidine 20 MG TAB PO SCH ×2 (09:34→20:11)
[2019-08-08] MEDS: Isosorbide Mononitrate (ER) 30 MG TAB PO SCH (09:34)
[2019-08-08] MEDS: Ferrous Sulfate 325 MG TAB PO SCH (09:34)
[2019-08-08] MEDS: Potassium Chloride 10 MEQ TAB PO SCH (09:34)
[2019-08-08] MEDS: Cyanocobalamin (Vitamin B-12) 1,000 MCG TAB PO SCH (09:34)
--- NOTE | 2019-08-08 15:15 | PRG ---
DATE OF SERVICE: 08/08/2019 SUBJECTIVE: Ms. Valles is doing well, up in her wheelchair. Denies any complaints. Spouse is in the room. Resting. I informed them that the wound culture grew gram-negative rods, but we are awaiting on final sensitivities. No fever or chills. No drainage from the wound. OBJECTIVE: VITAL SIGNS: She is afebrile, heart rate 66, respirations 18, oxygen saturation 97% on 1L, blood pressure 101/51. CARDIOVASCULAR SYSTEM: S1 and S2 plus. RESPIRATORY SYSTEM: Normal vesicular breath sounds. ABDOMEN: Soft, obese, nontender. Bowel sounds in all quadrants. Colostomy is healthy. Midline wound with dressing. EXTREMITIES: Without cyanosis or clubbing CENTRAL NERVOUS SYSTEM: Awake and responsive. Generalized weakness. LABORATORY VALUES: Her INR is elevated at 3.4 today. I advised nursing to hold her warfarin today. IMPRESSION: 1. Open abdominal wound. 2. Colonic perforation status post colostomy placement. 3. History of gastrointestinal bleed. 4. Coronary artery disease. 5. Chronic systolic congestive heart failure. 6. Improving hypoxemic respiratory failure. PLAN: 1. Continue current medications, but hold warfarin if INR greater than 3. 2. Heart-healthy diet. 3. Wound care. 4. Titrate oxygen. 5. DVT prophylaxis, the patient is on warfarin. 6. Decubitus precaution. 7. Wound care. 8. Routine laboratory values. 9. Dr. Stanislav munoz. 10. Await sensitivities. Job ID: [id number]
[2019-08-08] MEDS: Melatonin 3 MG TAB PO PRN (20:11)
[2019-08-08] MEDS: tiZANidine HCl 4 MG TAB PO PRN (20:11)
[2019-08-09] MEDS: ALPRAZolam 0.25 MG TAB PO PRN ×2 (01:18→21:03)
[2019-08-09] MEDS: Levothyroxine Sodium 50 MCG TAB PO SCH (05:43)
[2019-08-09 05:52] LABS: INR-International Normal Ratio 2.6; Prothrombin Time 27.6 SEC (12.0-14.7)
[2019-08-09] MEDS: Calcium Carbonate + Vit D 1 TAB PO SCH (08:51)
[2019-08-09] MEDS: Cyanocobalamin (Vitamin B-12) 1,000 MCG TAB PO SCH (08:52)
[2019-08-09] MEDS: Multivitamin W/ Minerals 1 TAB PO SCH (08:52)
[2019-08-09] MEDS: Ferrous Sulfate 325 MG TAB PO SCH (08:55)
[2019-08-09] MEDS: Isosorbide Mononitrate (ER) 30 MG TAB PO SCH (08:55)
[2019-08-09] MEDS: Docusate 100 MG CAP PO SCH ×2 (08:55→21:02)
[2019-08-09] MEDS: Famotidine 20 MG TAB PO SCH ×2 (08:56→21:03)
[2019-08-09] MEDS: Magnesium Oxide 400 MG TAB PO SCH (08:56)
[2019-08-09] MEDS: Potassium Chloride 10 MEQ TAB PO SCH (08:56)
[2019-08-09] MEDS: Warfarin Sodium 2 MG TAB PO SCH (17:55)
--- NOTE | 2019-08-09 18:15 | PRG ---
DATE OF SERVICE: 08/09/2019 SUBJECTIVE: The patient feels well. States she is getting stronger, eating well, sleeping well with minimal pain. However, physical therapy appear to state that she did not walk much because of fatigue and we will discuss with them. Wound is being cleaned by nurses, who states that it is much account manager sales representative with decreased discharge after using [employer] packing. OBJECTIVE: VITAL SIGNS: Show her temperature is 97.8, pulse 58, respirations 18, O2 saturations 99% on half a liter. ABDOMEN: The wound is open and cleaned and shows minimal slough and no drainage with [employer] packing. LUNGS: Clear. CARDIAC: Shows regular rhythm. LABORATORY DATA: PT/INR is therapeutic at 27 and 2.6. ASSESSMENT AND PLAN: 1. Resolving abdominal wound with packing with Silver[employer] to follow up with surgeon later this week. 2. Functioning colostomy. 3. Stable atrial fibrillation with rate control and anticoagulation. 4. Diastolic heart failure appears to be stable with no evidence of decompensation. 5. Deconditioning, improving and we will discuss with PT/OT. Job ID: [id number]
[2019-08-09] MEDS: Melatonin 3 MG TAB PO PRN (21:02)
[2019-08-09] MEDS: tiZANidine HCl 4 MG TAB PO PRN (21:03)
[2019-08-10 05:51] LABS: INR-International Normal Ratio 2.2; Prothrombin Time 23.9 SEC (12.0-14.7)
[2019-08-10 05:57] LABS: #Basophils 0.1 thou/uL (0.0-0.2); #Eosinphils 0.1 thou/uL (0.0-0.7); #Lymphocytes 1.3 thou/uL (1.20-3.40); #Monocytes 0.9 thou/uL (0.11-0.59); #Neutrophils 5.6 thou/uL (1.40-6.50); %Basophils 1.2 % (0.0-1.0); %Eosinophils 1.1 % (0.0-10.0); %Lymphocytes 16.2 % (21.0-51.0); %Monocytes 11.7 % (0.0-10.0); %Neutrophils 69.8 % (42.0-75.0); Anisocytosis SLIGHT = 6-15 cells (100X) (0-5/hpf); Hemoglobin 8.4 g/dL (12.0-16.0); Hypochromia MODERATE=16-30 cells (100X) (0-5/hpf); MDiff Complete? YES; Mean Corpuscular HGB CONC 28.1 g/dL (32.0-36.0); Mean Corpuscular Hemoglobin 23.4 pg (27.0-31.0); Mean Corpuscular Volume 83.4 fL (78.0-98.0); Ovalocytes SLIGHT = 2-5 cells (100X) (0-1/hpf); Platelet Count 320 thou/uL (130-400); Platelet Morphology Comment Appears Adequate; RBC Distribution Width 19.9 % (11.5-14.5)
[2019-08-10 06:05] LABS: ALT (SGPT) 30 U/L (8-55); AST (SGOT) 28 U/L (5-34); Albumin 3.4 g/dL (3.4-4.8); Alkaline Phosphatase 120 U/L (40-110); Anion Gap 14 mmol/L (10-20); BUN (Urea Nitrogen) 29 mg/dL (9.8-20.1); Bilirubin, Total 0.6 mg/dL (0.2-1.2); Calc. Creatinine Clearance 68 mL/min (70-130); Calcium 9.4 mg/dL (7.8-10.44); Carbon Dioxide 29 mmol/L (23-31); Chloride 95 mmol/L (98-107); Estimated GFR-MDRD 54; Globulin 2.5 g/dL (2.4-3.5); Glucose 112 mg/dL (83-110); Potassium 4.4 mmol/L (3.5-5.1); Protein, Total 5.9 g/dL (6.0-8.3); Sodium 134 mmol/L (136-145)
[2019-08-10] MEDS: Levothyroxine Sodium 50 MCG TAB PO SCH (06:19)
[2019-08-10] MEDS: Multivitamin W/ Minerals 1 TAB PO SCH (09:37)
[2019-08-10] MEDS: Potassium Chloride 10 MEQ TAB PO SCH (09:37)
[2019-08-10] MEDS: Calcium Carbonate + Vit D 1 TAB PO SCH (09:37)
[2019-08-10] MEDS: Docusate 100 MG CAP PO SCH ×2 (09:38→20:15)
[2019-08-10] MEDS: Magnesium Oxide 400 MG TAB PO SCH (09:38)
[2019-08-10] MEDS: Cyanocobalamin (Vitamin B-12) 1,000 MCG TAB PO SCH (09:38)
[2019-08-10] MEDS: Famotidine 20 MG TAB PO SCH ×2 (09:38→20:16)
[2019-08-10] MEDS: Isosorbide Mononitrate (ER) 30 MG TAB PO SCH (09:38)
[2019-08-10] MEDS: Ferrous Sulfate 325 MG TAB PO SCH (09:38)
[2019-08-10] MEDS: Warfarin Sodium 3 MG TAB PO SCH (16:49)
[2019-08-10] MEDS: ALPRAZolam 0.25 MG TAB PO PRN (20:15)
[2019-08-10] MEDS: tiZANidine HCl 4 MG TAB PO PRN (20:15)
[2019-08-10] MEDS: Amoxicillin/Potassium Clav 875 MG TAB PO SCH (20:15)
[2019-08-10] MEDS: Melatonin 3 MG TAB PO PRN (20:16)
[2019-08-11 05:39] LABS: INR-International Normal Ratio 2.1; Prothrombin Time 23.3 SEC (12.0-14.7)
[2019-08-11] MEDS: Levothyroxine Sodium 100 MCG TAB PO SCH (05:54)
[2019-08-11] MEDS: Cyanocobalamin (Vitamin B-12) 1,000 MCG TAB PO SCH (10:02)
[2019-08-11] MEDS: Calcium Carbonate + Vit D 1 TAB PO SCH (10:02)
[2019-08-11] MEDS: Ferrous Sulfate 325 MG TAB PO SCH (10:02)
[2019-08-11] MEDS: Isosorbide Mononitrate (ER) 30 MG TAB PO SCH (10:02)
[2019-08-11] MEDS: Amoxicillin/Potassium Clav 875 MG TAB PO SCH ×2 (10:02→20:33)
[2019-08-11] MEDS: Ondansetron ODT 4 MG TAB PO PRN (10:02)
[2019-08-11] MEDS: Docusate 100 MG CAP PO SCH ×2 (10:03→20:33)
[2019-08-11] MEDS: Magnesium Oxide 400 MG TAB PO SCH (10:03)
[2019-08-11] MEDS: Multivitamin W/ Minerals 1 TAB PO SCH (10:03)
[2019-08-11] MEDS: Potassium Chloride 10 MEQ TAB PO SCH (10:03)
[2019-08-11] MEDS: Famotidine 20 MG TAB PO SCH ×2 (10:03→20:33)
[2019-08-11] MEDS: traMADol HCl 50 MG TAB PO PRN ×2 (11:45→20:34)
[2019-08-11] MEDS: Warfarin Sodium 2 MG TAB PO SCH (16:27)
[2019-08-11] MEDS: Acetaminophen 325 MG TAB PO PRN (16:27)
--- NOTE | 2019-08-11 18:50 | PRG ---
DATE OF SERVICE: 08/10/2019 SUBJECTIVE: The patient states she is feeling well, but has received a call from her primary care physician with instructions that she needs to be increased in her levothyroxine. Apparently, the patient was supposedly taking 100 mcg of levothyroxine previously, but has only been taking 50 mcg since admitted to the hospital at [facility]. She also has been on 100 mg of sertraline and her PCP thinks she needs to be on 200. Finally, she has continued on her Augmentin that was started for the wound culture and is due to see the abdominal surgeon, Dr. Lang in 2 days. She has been cooperating with therapy and feels that she is progressing, although therapist states that she is not cooperating completely. OBJECTIVE: VITAL SIGNS: Her blood pressure is 97/58, O2 saturation is 96% on half a liter, pulse is 62. LUNGS: Clear. CARDIAC: Showed regular rhythm. ABDOMEN: Soft and nontender. Wound appears to be healing with minimal drainage. Her colostomy is working well. SKIN/EXTREMITIES: Showed no edema. ASSESSMENT: 1. Resolving abdominal wound, wet-to-dry dressing to follow up with general surgeon later in 2 weeks. 2. Confusion about medications with incorrect levothyroxine since admission and we will increase back to her previous dose of 100 mcg daily. 3. Depression and anxiety with recommendation by PCP to increase to 200 mg daily. 4. Hypotension, fatigue, and weakness with no evidence of dehydration on lab and we will decrease metoprolol to 25 daily. 5. PT with fair cooperation and will continue to follow closely. Job ID: [id number]
--- NOTE | 2019-08-11 18:51 | PRG ---
DATE OF SERVICE: 08/11/2019 SUBJECTIVE: The patient states she was dizzy this morning, working with Therapy, but has had no shortness of breath, chest pain, or abdominal pain. The patient has had her fluid pill decreased as well as her metoprolol. She is considering as maybe as one of her sleeping pills that she takes at nighttime and she does take alprazolam and tizanidine. OBJECTIVE: VITAL SIGNS: Shows blood pressure is 115/59, pulse 83, and O2 sats 93% on room air. LUNGS: Clear. CARDIAC: Shows irregular rhythm. ABDOMEN: Soft, nontender. Abdomen shows clean abdominal wound, on antibiotics, well-functioning colostomy. EXTREMITIES: Showed no edema. LABORATORY DATA: Hematocrit is 30, hemoglobin 8.4, white count is 8000. Sodium is 134, potassium 4.4, chloride 95, bicarb 29, BUN 29, creatinine 1.0, glucose 112. BNP is down to 851. ASSESSMENT: 1. Resolving abdominal wound. 2. Stable atrial fibrillation with rate control, on anticoagulation. 3. Stable diastolic heart failure. 4. Stable depression. 5. Stable hypothyroidism, on increased medications. 6. Recurrent new onset of dizziness, possibly due to tizanidine. PLAN: 1. Discontinue tizanidine. 2. Continue PT/OT. 3. Continue rate control and anticoagulation of atrial fibrillation. 4. Continue to monitor vital signs with therapy. 5. Follow up with Dr. Lang tomorrow. Job ID: [id number]
[2019-08-11] MEDS: Melatonin 3 MG TAB PO PRN (20:32)
[2019-08-11] MEDS: ALPRAZolam 0.25 MG TAB PO PRN (20:33)
[2019-08-12] MEDS: Levothyroxine Sodium 100 MCG TAB PO SCH (05:51)
[2019-08-12] MEDS: Docusate 100 MG CAP PO SCH ×2 (08:54→20:55)
[2019-08-12] MEDS: Calcium Carbonate + Vit D 1 TAB PO SCH (08:54)
[2019-08-12] MEDS: Isosorbide Mononitrate (ER) 30 MG TAB PO SCH (08:54)
[2019-08-12] MEDS: Famotidine 20 MG TAB PO SCH ×2 (08:54→20:54)
[2019-08-12] MEDS: Amoxicillin/Potassium Clav 875 MG TAB PO SCH ×2 (08:54→20:54)
[2019-08-12] MEDS: Potassium Chloride 10 MEQ TAB PO SCH (08:54)
[2019-08-12] MEDS: Cyanocobalamin (Vitamin B-12) 1,000 MCG TAB PO SCH (08:55)
[2019-08-12] MEDS: Ferrous Sulfate 325 MG TAB PO SCH (08:55)
[2019-08-12] MEDS: Multivitamin W/ Minerals 1 TAB PO SCH (08:55)
[2019-08-12] MEDS: Magnesium Oxide 400 MG TAB PO SCH (08:55)
[2019-08-12] MEDS: traMADol HCl 50 MG TAB PO PRN ×3 (09:14→20:55)
[2019-08-12] MEDS: Warfarin Sodium 2 MG TAB PO SCH (17:22)
[2019-08-12] MEDS: Melatonin 3 MG TAB PO PRN (20:54)
[2019-08-12] MEDS: ALPRAZolam 0.25 MG TAB PO PRN (20:54)
[2019-08-13] MEDS: Levothyroxine Sodium 100 MCG TAB PO SCH (05:12)
[2019-08-13 05:34] LABS: INR-International Normal Ratio 2.8; Prothrombin Time 29.2 SEC (12.0-14.7)
[2019-08-13] MEDS: traMADol HCl 50 MG TAB PO PRN ×2 (09:25→20:34)
[2019-08-13] MEDS: Acetaminophen 325 MG TAB PO PRN (09:27)
[2019-08-13] MEDS: Amoxicillin/Potassium Clav 875 MG TAB PO SCH ×2 (09:29→20:33)
[2019-08-13] MEDS: Calcium Carbonate + Vit D 1 TAB PO SCH (09:29)
[2019-08-13] MEDS: Potassium Chloride 10 MEQ TAB PO SCH (09:30)
[2019-08-13] MEDS: Ferrous Sulfate 325 MG TAB PO SCH (09:30)
[2019-08-13] MEDS: Docusate 100 MG CAP PO SCH ×2 (09:31→20:36)
[2019-08-13] MEDS: Isosorbide Mononitrate (ER) 30 MG TAB PO SCH (09:31)
[2019-08-13] MEDS: Magnesium Oxide 400 MG TAB PO SCH (09:31)
[2019-08-13] MEDS: Famotidine 20 MG TAB PO SCH ×2 (09:32→20:36)
[2019-08-13] MEDS: Cyanocobalamin (Vitamin B-12) 1,000 MCG TAB PO SCH (09:33)
[2019-08-13] MEDS: Multivitamin W/ Minerals 1 TAB PO SCH (09:33)
[2019-08-13] MEDS: Ondansetron ODT 4 MG TAB PO PRN (09:42)
--- NOTE | 2019-08-13 09:48 | PRG ---
DATE OF SERVICE: 08/13/2019 SUBJECTIVE: Ms. Valles is doing well. She saw her general surgeon and apparently, has been placed back on wound VAC. She is tolerating her medications including antibiotics. Nausea seems to be improving. No further lightheadedness or dizziness since stopping the tizanidine. Discussed with spouse in detail. All questions answered. OBJECTIVE: VITAL SIGNS: She is afebrile. Heart rate 96, respirations 20, oxygen saturation 93% on room air, and blood pressure 149/78. CARDIOVASCULAR: S1 and S2 plus. RESPIRATORY: Normal vesicular breath Sounds. ABDOMEN: Soft, nontender. Bowel sounds heard in all quadrants. Wound VAC in place. EXTREMITIES: Without cyanosis or clubbing. CENTRAL NERVOUS SYSTEM: Generalized weakness, otherwise nonfocal. IMPRESSION: 1. Open abdominal wound, now with wound VAC, gradually healing. 2. Colonic perforation, status post colostomy placement. 3. Coronary artery disease without angina. 4. Chronic systolic congestive heart failure, well compensated. 5. Improving deconditioning. PLAN: 1. Continue current medications. 2. Heart-healthy diet. 3. Wound VAC care. 4. DVT prophylaxis, the patient is on warfarin and it is therapeutic, last level is 2.8. 5. Physical therapy. 6. Routine laboratory values. 7. Nutritional support. 8. Monitor for complete resolution of nausea. Job ID: [id number]
[2019-08-13] MEDS: Warfarin Sodium 2 MG TAB PO SCH (16:34)
[2019-08-13] MEDS: ALPRAZolam 0.25 MG TAB PO PRN (20:34)
[2019-08-13] MEDS: Melatonin 3 MG TAB PO PRN (20:35)
[2019-08-14] MEDS: Levothyroxine Sodium 100 MCG TAB PO SCH (05:09)
[2019-08-14 05:36] LABS: INR-International Normal Ratio 2.8; Prothrombin Time 29.3 SEC (12.0-14.7)
[2019-08-14] MEDS: Amoxicillin/Potassium Clav 875 MG TAB PO SCH ×2 (08:29→20:38)
[2019-08-14] MEDS: Calcium Carbonate + Vit D 1 TAB PO SCH (08:29)
[2019-08-14] MEDS: Potassium Chloride 10 MEQ TAB PO SCH (08:30)
[2019-08-14] MEDS: Ferrous Sulfate 325 MG TAB PO SCH (08:30)
[2019-08-14] MEDS: Famotidine 20 MG TAB PO SCH ×2 (08:30→20:38)
[2019-08-14] MEDS: Cyanocobalamin (Vitamin B-12) 1,000 MCG TAB PO SCH (08:30)
[2019-08-14] MEDS: Multivitamin W/ Minerals 1 TAB PO SCH (08:30)
[2019-08-14] MEDS: Docusate 100 MG CAP PO SCH ×2 (08:30→20:38)
[2019-08-14] MEDS: Magnesium Oxide 400 MG TAB PO SCH (08:30)
[2019-08-14] MEDS: Isosorbide Mononitrate (ER) 30 MG TAB PO SCH (08:31)
[2019-08-14] MEDS ORDERED: Torsemide 20 MG TAB PO SCH (12:15)
[2019-08-14] MEDS: traMADol HCl 50 MG TAB PO PRN ×2 (12:33→20:38)
[2019-08-14] MEDS: Acetaminophen 325 MG TAB PO PRN (12:34)
--- NOTE | 2019-08-14 12:40 | PRG ---
DATE OF SERVICE: 08/14/2019 SUBJECTIVE: Ms. Valles is doing well except she is noticing some swelling. She checked with nursing and apparently she is not on her torsemide that she was taking. Reviewed her chart and she was admitted with torsemide 20 mg b.i.d., but for some reason, her last dose was on July 31. I advised them that I will start her back on her torsemide, give her 20 mg now and then from tomorrow morning it will be 20 mg twice daily. I do not see anything in Dr. [place]'s notes about stopping it and so I am not sure what happened. OBJECTIVE: VITAL SIGNS: She is afebrile. Heart rate 92, respirations 16, oxygen saturation 92% on room air, and blood pressure 153/80. CARDIOVASCULAR SYSTEM: S1 and S2 plus. RESPIRATORY SYSTEM: Normal vesicular breath sounds. ABDOMEN: Soft, obese, and nontender. Wound VAC in place. EXTREMITIES: Without cyanosis or clubbing, 1+ left leg edema. CENTRAL NERVOUS SYSTEM: Awake and responsive. Generalized weakness. IMPRESSION: 1. Open abdominal wound requiring wound VAC. 2. Colonic perforation, requiring surgery with colostomy placement. 3. History of gastrointestinal bleed. 4. Resolving feculent peritonitis. 5. Coronary artery disease. 6. Chronic systolic congestive heart failure. PLAN: 1. Resume Demadex. 2. Continue other medications. 3. Recheck BMP on Friday. 4. Heart healthy diet. 5. Wound VAC. 6. Nutritional support. 7. DVT prophylaxis. The patient is on warfarin. 8. Decubitus precautions. 9. Physical therapy. Job ID: [id number]
[2019-08-14] MEDS: Melatonin 3 MG TAB PO PRN (20:38)
[2019-08-14] MEDS: ALPRAZolam 0.25 MG TAB PO PRN (20:38)
[2019-08-15] MEDS: traMADol HCl 50 MG TAB PO PRN ×2 (04:28→20:21)
[2019-08-15] MEDS: Levothyroxine Sodium 100 MCG TAB PO SCH (04:28)
[2019-08-15 05:18] LABS: INR-International Normal Ratio 2.6; Prothrombin Time 27.7 SEC (12.0-14.7)
[2019-08-15] MEDS: Isosorbide Mononitrate (ER) 30 MG TAB PO SCH (09:04)
[2019-08-15] MEDS: Famotidine 20 MG TAB PO SCH ×2 (09:05→20:21)
[2019-08-15] MEDS: Multivitamin W/ Minerals 1 TAB PO SCH (09:05)
[2019-08-15] MEDS: Cyanocobalamin (Vitamin B-12) 1,000 MCG TAB PO SCH (09:05)
[2019-08-15] MEDS: Magnesium Oxide 400 MG TAB PO SCH (09:05)
[2019-08-15] MEDS: Potassium Chloride 10 MEQ TAB PO SCH (09:05)
[2019-08-15] MEDS: Amoxicillin/Potassium Clav 875 MG TAB PO SCH ×2 (09:05→20:21)
[2019-08-15] MEDS: Ferrous Sulfate 325 MG TAB PO SCH (09:05)
[2019-08-15] MEDS: Calcium Carbonate + Vit D 1 TAB PO SCH (09:05)
[2019-08-15] MEDS: Docusate 100 MG CAP PO SCH ×2 (09:05→20:21)
[2019-08-15] MEDS: Torsemide 20 MG TAB PO SCH ×2 (09:06→14:00)
--- NOTE | 2019-08-15 10:39 | PRG ---
DATE OF SERVICE: 08/15/2019 SUBJECTIVE: Ms. Valles is doing well. She is up in bed. She just finished her breakfast. She feels like the torsemide is really helping. Her spouse is not in the room. OBJECTIVE: VITAL SIGNS: She is afebrile. Heart rate 88, respirations 20, oxygen saturation 96% on room air, blood pressure 140/71. CARDIOVASCULAR SYSTEM: S1 and S2 plus. RESPIRATORY SYSTEM: Normal vesicular breath sounds. ABDOMEN: Soft, nontender. Wound VAC in place. EXTREMITIES: Without cyanosis or clubbing, improved left lower extremity edema. CENTRAL NERVOUS SYSTEM: Awake and responsive. Generalized weakness. INR is 2.6. IMPRESSION: 1. Open abdominal wound with wound VAC. 2. Colon perforation requiring colostomy placement. 3. Coronary artery disease. 4. Chronic systolic congestive heart failure. 5. Atrial fibrillation. PLAN: 1. Continue current medications including diuretics. 2. Recheck BMP in the morning. 3. Heart healthy diet. 4. DVT prophylaxis-she is on warfarin. 5. Decubitus precautions. 6. Stress ulcer prophylaxis. 7. Wound VAC care. 8. Colostomy care. 9. Physical therapy. 10. Dr. Stanislav yadav [facility]. Job ID: [id number]
[2019-08-15] MEDS: Warfarin Sodium 2 MG TAB PO SCH (16:21)
[2019-08-15] MEDS: Melatonin 3 MG TAB PO PRN (20:21)
[2019-08-15] MEDS: ALPRAZolam 0.25 MG TAB PO PRN (20:21)
[2019-08-16] MEDS: Levothyroxine Sodium 100 MCG TAB PO SCH (05:07)
[2019-08-16 05:33] LABS: INR-International Normal Ratio 2.2; Prothrombin Time 24.5 SEC (12.0-14.7)
[2019-08-16 05:41] LABS: Anion Gap 18 mmol/L (10-20); BUN (Urea Nitrogen) 23 mg/dL (9.8-20.1); Calc. Creatinine Clearance 67 mL/min (70-130); Calcium 8.8 mg/dL (7.8-10.44); Carbon Dioxide 32 mmol/L (23-31); Chloride 93 mmol/L (98-107); Estimated GFR-MDRD 58; Glucose 90 mg/dL (83-110); Sodium 140 mmol/L (136-145)
[2019-08-16 05:51] LABS: Potassium 2.8 mmol/L (3.5-5.1)
[2019-08-16] MEDS ORDERED: Potassium Chloride 10 MEQ TAB PO SCH ×2 (09:00→12:00)
[2019-08-16] MEDS: Amoxicillin/Potassium Clav 875 MG TAB PO SCH ×2 (09:30→20:44)
[2019-08-16] MEDS: Calcium Carbonate + Vit D 1 TAB PO SCH (09:32)
[2019-08-16] MEDS: Docusate 100 MG CAP PO SCH ×2 (09:33→20:45)
[2019-08-16] MEDS: Ferrous Sulfate 325 MG TAB PO SCH (09:34)
[2019-08-16] MEDS: Multivitamin W/ Minerals 1 TAB PO SCH (09:34)
[2019-08-16] MEDS: Cyanocobalamin (Vitamin B-12) 1,000 MCG TAB PO SCH (09:34)
[2019-08-16] MEDS: Magnesium Oxide 400 MG TAB PO SCH (09:35)
[2019-08-16] MEDS: Isosorbide Mononitrate (ER) 30 MG TAB PO SCH (09:35)
[2019-08-16] MEDS: Famotidine 20 MG TAB PO SCH ×2 (09:36→20:45)
[2019-08-16] MEDS: Torsemide 20 MG TAB PO SCH ×2 (09:36→14:08)
[2019-08-16] MEDS: Acetaminophen 325 MG TAB PO PRN (11:54)
[2019-08-16] MEDS: traMADol HCl 50 MG TAB PO PRN ×2 (11:55→20:44)
[2019-08-16] MEDS: Warfarin Sodium 2 MG TAB PO SCH (16:49)
--- NOTE | 2019-08-16 17:52 | PRG ---
DATE OF SERVICE: 08/16/2019 SUBJECTIVE: The patient feels much better, walking in the farmer 3 times without any oxygen, feeling much stronger. She is tolerating her wound VAC very well. She is having no dyspnea, chest pain, or palpitations and is off her oxygen as mentioned above. OBJECTIVE: VITAL SIGNS: Her blood pressure is 113/55, temperature 97, pulse 85, respirations 18, and O2 saturations 94% on room air. LUNGS: Clear. CARDIAC: Irregular rhythm. SKIN AND EXTREMITIES: No edema. ABDOMEN: Soft and nontender. Well-functioning colostomy and wound VAC in place. LABORATORY DATA: Hematocrit of 30, hemoglobin of 8.4, and white count 8000. Chemistry, however, showed sodium of 140, potassium down 2.8 from 4.4, chloride 93, bicarb 32, BUN, however, is improved to 23, and creatinine is stable at 0.95. ASSESSMENT: 1. Resolving abdominal wound with wound VAC in place. 2. Compensated systolic congestive heart failure, on torsemide, tolerating well with no further hypotension. 3. History of gastrointestinal bleed, no recurrence. 4. Resolving feculent peritonitis with wound VAC in place, being followed by Dr. Lang weekly. 5. New onset of hypokalemia, most likely due to torsemide. PLAN: 1. Give extra 20 mEq of potassium and increase to 3 times daily. 2. Recheck basic metabolic profile in the a.m. 3. Continue wound VAC and nutritional support. 4. Continue PT/OT. 5. Follow up with surgeon this week and discuss [place] VAC as the patient has one at home. Job ID: [id number]
[2019-08-16] MEDS: Potassium Chloride 10 MEQ TAB PO SCH (20:44)
[2019-08-16] MEDS: Melatonin 3 MG TAB PO PRN (20:45)
[2019-08-16] MEDS: ALPRAZolam 0.25 MG TAB PO PRN (20:45)
[2019-08-17] MEDS: Levothyroxine Sodium 100 MCG TAB PO SCH (05:11)
[2019-08-17 05:53] LABS: Anion Gap 15 mmol/L (10-20); BUN (Urea Nitrogen) 27 mg/dL (9.8-20.1); Calc. Creatinine Clearance 57 mL/min (70-130); Calcium 9.4 mg/dL (7.8-10.44); Carbon Dioxide 34 mmol/L (23-31); Chloride 94 mmol/L (98-107); Estimated GFR-MDRD 48; Glucose 95 mg/dL (83-110); Potassium 3.2 mmol/L (3.5-5.1); Sodium 140 mmol/L (136-145)
[2019-08-17] MEDS: Ondansetron ODT 4 MG TAB PO PRN (08:19)
[2019-08-17] MEDS: traMADol HCl 50 MG TAB PO PRN ×2 (08:22→20:49)
[2019-08-17] MEDS: Amoxicillin/Potassium Clav 875 MG TAB PO SCH ×2 (09:32→20:44)
[2019-08-17] MEDS: Potassium Chloride 10 MEQ TAB PO SCH ×3 (09:33→20:45)
[2019-08-17] MEDS: Docusate 100 MG CAP PO SCH ×2 (09:33→20:45)
[2019-08-17] MEDS: Multivitamin W/ Minerals 1 TAB PO SCH (09:33)
[2019-08-17] MEDS: Calcium Carbonate + Vit D 1 TAB PO SCH (09:33)
[2019-08-17] MEDS: Famotidine 20 MG TAB PO SCH ×2 (09:34→20:45)
[2019-08-17] MEDS: Isosorbide Mononitrate (ER) 30 MG TAB PO SCH (09:34)
[2019-08-17] MEDS: Cyanocobalamin (Vitamin B-12) 1,000 MCG TAB PO SCH (09:34)
[2019-08-17] MEDS: Magnesium Oxide 400 MG TAB PO SCH (09:34)
[2019-08-17] MEDS: Ferrous Sulfate 325 MG TAB PO SCH (09:34)
[2019-08-17] MEDS: Torsemide 20 MG TAB PO SCH ×2 (09:36→14:56)
[2019-08-17] MEDS: Warfarin Sodium 3 MG TAB PO SCH (17:31)
[2019-08-17] MEDS: Melatonin 3 MG TAB PO PRN (23:18)
[2019-08-18] MEDS: Levothyroxine Sodium 100 MCG TAB PO SCH (05:35)
[2019-08-18] MEDS: Multivitamin W/ Minerals 1 TAB PO SCH (08:44)
[2019-08-18] MEDS: Amoxicillin/Potassium Clav 875 MG TAB PO SCH ×2 (08:45→20:31)
[2019-08-18] MEDS: traMADol HCl 50 MG TAB PO PRN ×2 (08:45→20:31)
[2019-08-18] MEDS: Docusate 100 MG CAP PO SCH ×2 (08:45→20:31)
[2019-08-18] MEDS: Isosorbide Mononitrate (ER) 30 MG TAB PO SCH (08:46)
[2019-08-18] MEDS: Famotidine 20 MG TAB PO SCH ×2 (08:46→20:31)
[2019-08-18] MEDS: Ferrous Sulfate 325 MG TAB PO SCH (08:46)
[2019-08-18] MEDS: Cyanocobalamin (Vitamin B-12) 1,000 MCG TAB PO SCH (08:46)
[2019-08-18] MEDS: Potassium Chloride 10 MEQ TAB PO SCH ×3 (08:46→20:31)
[2019-08-18] MEDS: Magnesium Oxide 400 MG TAB PO SCH (08:46)
[2019-08-18] MEDS: Torsemide 20 MG TAB PO SCH ×2 (08:55→15:05)
[2019-08-18] MEDS: Calcium Carbonate + Vit D 1 TAB PO SCH (08:55)
[2019-08-18] MEDS: Warfarin Sodium 2 MG TAB PO SCH (17:39)
[2019-08-18] MEDS: Melatonin 3 MG TAB PO PRN (21:33)
[2019-08-18] MEDS: ALPRAZolam 0.25 MG TAB PO PRN (21:33)
[2019-08-19] MEDS: Levothyroxine Sodium 100 MCG TAB PO SCH (05:24)
[2019-08-19] MEDS: traMADol HCl 50 MG TAB PO PRN ×2 (05:24→20:44)
[2019-08-19 06:22] LABS: INR-International Normal Ratio 2.8; Prothrombin Time 29.1 SEC (12.0-14.7)
[2019-08-19] MEDS: Amoxicillin/Potassium Clav 875 MG TAB PO SCH ×2 (08:48→22:13)
[2019-08-19] MEDS: Calcium Carbonate + Vit D 1 TAB PO SCH (08:48)
[2019-08-19] MEDS: Potassium Chloride 10 MEQ TAB PO SCH ×3 (08:49→20:40)
[2019-08-19] MEDS: Ferrous Sulfate 325 MG TAB PO SCH (08:50)
[2019-08-19] MEDS: Torsemide 20 MG TAB PO SCH ×2 (08:50→14:50)
[2019-08-19] MEDS: Docusate 100 MG CAP PO SCH ×2 (08:51→20:40)
[2019-08-19] MEDS: Isosorbide Mononitrate (ER) 30 MG TAB PO SCH (08:52)
[2019-08-19] MEDS: Magnesium Oxide 400 MG TAB PO SCH (08:52)
[2019-08-19] MEDS: Famotidine 20 MG TAB PO SCH ×2 (08:52→20:40)
[2019-08-19] MEDS: Multivitamin W/ Minerals 1 TAB PO SCH (08:53)
[2019-08-19] MEDS: Cyanocobalamin (Vitamin B-12) 1,000 MCG TAB PO SCH (08:53)
[2019-08-19] MEDS: Warfarin Sodium 2 MG TAB PO SCH (17:09)
[2019-08-19] MEDS: Melatonin 3 MG TAB PO PRN (20:40)
[2019-08-19] MEDS: ALPRAZolam 0.25 MG TAB PO PRN ×2 (20:40→22:13)
[2019-08-19] MEDS: Acetaminophen 325 MG TAB PO PRN (20:44)
[2019-08-20] MEDS: Levothyroxine Sodium 100 MCG TAB PO SCH (05:28)
[2019-08-20 05:47] LABS: INR-International Normal Ratio 3.6; Prothrombin Time 35.6 SEC (12.0-14.7)
[2019-08-20] MEDS: Amoxicillin/Potassium Clav 875 MG TAB PO SCH (10:00)
[2019-08-20] MEDS: Calcium Carbonate + Vit D 1 TAB PO SCH (10:00)
[2019-08-20] MEDS: Ferrous Sulfate 325 MG TAB PO SCH (10:00)
[2019-08-20] MEDS: Isosorbide Mononitrate (ER) 30 MG TAB PO SCH (10:01)
[2019-08-20] MEDS: Potassium Chloride 10 MEQ TAB PO SCH ×3 (10:01→20:27)
[2019-08-20] MEDS: Magnesium Oxide 400 MG TAB PO SCH (10:01)
[2019-08-20] MEDS: Cyanocobalamin (Vitamin B-12) 1,000 MCG TAB PO SCH (10:02)
[2019-08-20] MEDS: Docusate 100 MG CAP PO SCH ×2 (10:02→20:27)
[2019-08-20] MEDS: Multivitamin W/ Minerals 1 TAB PO SCH (10:02)
[2019-08-20] MEDS: Famotidine 20 MG TAB PO SCH ×2 (10:02→20:27)
[2019-08-20] MEDS: Torsemide 20 MG TAB PO SCH ×2 (10:08→14:40)
[2019-08-20] MEDS: Warfarin Sodium 2 MG TAB PO SCH (17:12)
[2019-08-20] MEDS: traMADol HCl 50 MG TAB PO PRN (20:27)
[2019-08-20] MEDS: Acetaminophen 325 MG TAB PO PRN (20:27)
[2019-08-20] MEDS: Melatonin 3 MG TAB PO PRN (20:28)
[2019-08-20] MEDS: ALPRAZolam 0.25 MG TAB PO PRN (22:10)
[2019-08-21] MEDS: Levothyroxine Sodium 100 MCG TAB PO SCH (05:21)
[2019-08-21 06:10] LABS: INR-International Normal Ratio 3.7; Prothrombin Time 36.5 SEC (12.0-14.7)
[2019-08-21] MEDS: Calcium Carbonate + Vit D 1 TAB PO SCH (08:54)
[2019-08-21] MEDS: Famotidine 20 MG TAB PO SCH ×2 (08:54→20:19)
[2019-08-21] MEDS: Ferrous Sulfate 325 MG TAB PO SCH (08:54)
[2019-08-21] MEDS: Potassium Chloride 10 MEQ TAB PO SCH ×3 (08:54→20:19)
[2019-08-21] MEDS: Isosorbide Mononitrate (ER) 30 MG TAB PO SCH (08:55)
[2019-08-21] MEDS: Multivitamin W/ Minerals 1 TAB PO SCH (08:55)
[2019-08-21] MEDS: Docusate 100 MG CAP PO SCH ×2 (08:55→20:19)
[2019-08-21] MEDS: Cyanocobalamin (Vitamin B-12) 1,000 MCG TAB PO SCH (08:55)
[2019-08-21] MEDS: Magnesium Oxide 400 MG TAB PO SCH (08:55)
[2019-08-21] MEDS: Torsemide 20 MG TAB PO SCH ×2 (09:00→13:17)
[2019-08-21] MEDS: traMADol HCl 50 MG TAB PO PRN ×2 (09:08→20:18)
[2019-08-21] MEDS ORDERED: Warfarin Sodium 2 MG TAB PO SCH (17:00)
[2019-08-21] MEDS: Melatonin 3 MG TAB PO PRN (20:19)
[2019-08-21] MEDS: ALPRAZolam 0.25 MG TAB PO PRN (22:42)
[2019-08-21] MEDS: Ondansetron ODT 4 MG TAB PO PRN (22:47)
[2019-08-22] MEDS: Levothyroxine Sodium 100 MCG TAB PO SCH (05:32)
[2019-08-22 06:03] LABS: Prothrombin Time 30.6 SEC (12.0-14.7)
[2019-08-22] MEDS: Potassium Chloride 10 MEQ TAB PO SCH ×3 (08:27→20:35)
[2019-08-22] MEDS: Multivitamin W/ Minerals 1 TAB PO SCH (08:27)
[2019-08-22] MEDS: Calcium Carbonate + Vit D 1 TAB PO SCH (08:27)
[2019-08-22] MEDS: Docusate 100 MG CAP PO SCH ×2 (08:28→20:37)
[2019-08-22] MEDS: Ferrous Sulfate 325 MG TAB PO SCH (08:28)
[2019-08-22] MEDS: Magnesium Oxide 400 MG TAB PO SCH (08:28)
[2019-08-22] MEDS: Cyanocobalamin (Vitamin B-12) 1,000 MCG TAB PO SCH (08:29)
[2019-08-22] MEDS: Famotidine 20 MG TAB PO SCH ×2 (08:29→20:37)
[2019-08-22] MEDS: Isosorbide Mononitrate (ER) 30 MG TAB PO SCH (08:29)
[2019-08-22] MEDS: Torsemide 20 MG TAB PO SCH ×2 (08:33→15:17)
[2019-08-22] MEDS: ALPRAZolam 0.25 MG TAB PO PRN (08:47)
[2019-08-22 14:29] VITALS: BMI 29.9
[2019-08-22] MEDS ORDERED: Warfarin Sodium 2 MG TAB PO SCH (17:00)
[2019-08-22] MEDS ORDERED: traMADol HCl 50 MG TAB ONE ×2 (20:26)
[2019-08-22] MEDS: traMADol HCl 50 MG TAB PO PRN (20:36)
[2019-08-22] MEDS: Melatonin 3 MG TAB PO PRN (20:37)
--- NOTE | 2019-08-22 21:29 | PRG ---
DATE OF SERVICE: 08/21/2019 SUBJECTIVE: The patient feels well, no complaints, lying in bed, watching TV. States that she is pleased with her wound. It is apparently has been getting much smaller, having no pain. She is walking with therapies and having less shortness of breath. OBJECTIVE: VITAL SIGNS: Temperature is 96.3, pulse 85, respirations 18, O2 sats 94% on room air, and blood pressure 132/64. ASSESSMENT: 1. Resolving abdominal wound with wound VAC, on Augmentin. 2. Stable colostomy, status post perforated colon with feculent peritonitis. 3. Stable diastolic heart failure, appears to be improving conditionally. 4. Hypokalemia, improving on supplementation. 5. Atrial fibrillation with rate control and anticoagulation on 4 mg of warfarin daily with PT/INR up to 3.7, so we will hold one day and restart. Job ID: [id number]
--- NOTE | 2019-08-22 22:08 | PRG ---
DATE OF SERVICE: 08/22/2019 SUBJECTIVE: The patient feels well with no complaints, lying in bed, watching TV, ready to do more therapy tomorrow. OBJECTIVE: INR 3 with PT of 30 after being held one day. LUNGS: Clear. CARDIAC: Shows irregularly irregular rhythm. ABDOMEN: Soft and nontender with well-functioning colostomy and healing wound VAC. ASSESSMENT: 1. Resolving feculent peritonitis and wound with wound VAC in place. 2. Stable functioning colostomy. 3. Stable diastolic heart failure. 4. Improving deconditioning. 5. Stable atrial fibrillation with rate control and anticoagulation. PLAN: 1. Continue 4 mg of warfarin daily and continue PT, INRs. 2. Repeat CBC, comprehensive metabolic profile in the a.m. 3. Continue wound VAC and follow up with surgeon and wound care. Job ID: [id number]
[2019-08-23 05:32] LABS: Prothrombin Time 41.8 SEC (12.0-14.7)
[2019-08-23 05:36] LABS: INR-International Normal Ratio 4.4
[2019-08-23 05:43] LABS: ALT (SGPT) 12 U/L (8-55); AST (SGOT) 21 U/L (5-34); Albumin 3.9 g/dL (3.4-4.8); Alkaline Phosphatase 89 U/L (40-110); Anion Gap 18 mmol/L (10-20); BUN (Urea Nitrogen) 18 mg/dL (9.8-20.1); Bilirubin, Total 0.8 mg/dL (0.2-1.2); Calc. Creatinine Clearance 52 mL/min (70-130); Calcium 9.2 mg/dL (7.8-10.44); Carbon Dioxide 26 mmol/L (23-31); Chloride 97 mmol/L (98-107); Estimated GFR-MDRD 42; Globulin 3.2 g/dL (2.4-3.5); Glucose 126 mg/dL (83-110); Potassium 4.1 mmol/L (3.5-5.1); Protein, Total 7.1 g/dL (6.0-8.3); Sodium 137 mmol/L (136-145)
[2019-08-23 05:47] LABS: Band 20 % (5-11); Hemoglobin 10.2 g/dL (12.0-16.0); Hypochromia SLIGHT = 6-15 cells (100X) (0-5/hpf); Lymphocytes 18 % (21-51); MDiff Complete? YES; Mean Corpuscular HGB CONC 28.2 g/dL (32.0-36.0); Mean Corpuscular Hemoglobin 23.2 pg (27.0-31.0); Mean Corpuscular Volume 82.3 fL (78.0-98.0); Metamyelocyte 1 % (0-0); Monocytes 6 % (0-10); Neutrophil 55 % (42-75); Platelet Count 294 thou/uL (130-400); Platelet Morphology Comment Appears Adequate; White Blood Cell (WBC) Count 10.9 thou/uL (4.8-10.8)
[2019-08-23] MEDS: Levothyroxine Sodium 100 MCG TAB PO SCH (05:56)
[2019-08-23] MEDS: Potassium Chloride 10 MEQ TAB PO SCH (08:16)
[2019-08-23] MEDS: Docusate 100 MG CAP PO SCH ×2 (08:17→20:48)
[2019-08-23] MEDS: Calcium Carbonate + Vit D 1 TAB PO SCH (08:17)
[2019-08-23] MEDS: Isosorbide Mononitrate (ER) 30 MG TAB PO SCH (08:17)
[2019-08-23] MEDS: Ferrous Sulfate 325 MG TAB PO SCH (08:17)
[2019-08-23] MEDS: Multivitamin W/ Minerals 1 TAB PO SCH (08:18)
[2019-08-23] MEDS: Famotidine 20 MG TAB PO SCH ×2 (08:18→20:48)
[2019-08-23] MEDS: Magnesium Oxide 400 MG TAB PO SCH (08:18)
[2019-08-23] MEDS: Torsemide 20 MG TAB PO SCH ×2 (08:19→14:55)
[2019-08-23] MEDS: Cyanocobalamin (Vitamin B-12) 1,000 MCG TAB PO SCH (08:20)
[2019-08-23] MEDS: Ondansetron ODT 4 MG TAB PO PRN (08:42)
[2019-08-23] MEDS: traMADol HCl 50 MG TAB PO PRN (19:15)
[2019-08-23] MEDS: Melatonin 3 MG TAB PO PRN (20:48)
[2019-08-23] MEDS: ALPRAZolam 0.25 MG TAB PO PRN (20:48)
[2019-08-24 05:39] LABS: Prothrombin Time 39.7 SEC (12.0-14.7)
[2019-08-24 05:42] LABS: INR-International Normal Ratio 4.1
[2019-08-24 05:47] LABS: Anion Gap 19 mmol/L (10-20); BUN (Urea Nitrogen) 18 mg/dL (9.8-20.1); Calc. Creatinine Clearance 62 mL/min (70-130); Calcium 8.7 mg/dL (7.8-10.44); Carbon Dioxide 24 mmol/L (23-31); Chloride 96 mmol/L (98-107); Estimated GFR-MDRD 51; Glucose 105 mg/dL (83-110); Potassium 3.6 mmol/L (3.5-5.1); Sodium 135 mmol/L (136-145)
[2019-08-24] MEDS: Levothyroxine Sodium 100 MCG TAB PO SCH (06:20)
--- NOTE | 2019-08-24 07:35 | PRG ---
DATE OF SERVICE: 08/23/2019 SUBJECTIVE: Patient feels well lying in the bed. She is stating that she is improving daily, is walking in the farmer. No complaints. They have discussed with Therapy, feels that she is reaching a maximum hospital benefit. Wound Care states that her wound is almost completely healed and could be transitioned to a wound VAC. OBJECTIVE: LUNGS: Clear. CARDIAC: Shows irregularly irregular rhythm. VITAL SIGNS: Temperature is97, pulse 80, respirations 20, O2 saturations 96% on room air, blood pressure 133/69. LABORATORY DATA: PT/INR however still shows supratherapeutic INR at 4.4 despite being restarted back on her home dose of 4 mg of warfarin daily. ASSESSMENT: 1. Supratherapeutic anticoagulation and we will discontinue warfarin until PT/INR less than 3 and then start on 3 mg daily. 2. Resolving wound, on wound VAC, and we will transition to [place] VAC outpatient. 3. Diastolic heart failure, compensated very well. No dyspnea at rest or on exertion. 4. Deconditioning, improving greatly. Walking with therapy. PLAN: 1. Discontinue warfarin, daily PT/INRs. Restart 3 mg of warfarin daily when PT/INR less than 3. 2. Follow up with General surgeon on . 3. Transition to [place] VAC and possibly discharge home in the next several days. Job ID: [id number]
[2019-08-24] MEDS: Potassium Chloride 10 MEQ TAB PO SCH (08:23)
[2019-08-24] MEDS: Magnesium Oxide 400 MG TAB PO SCH (09:03)
[2019-08-24] MEDS: Calcium Carbonate + Vit D 1 TAB PO SCH (09:03)
[2019-08-24] MEDS: Docusate 100 MG CAP PO SCH ×2 (09:03→20:40)
[2019-08-24] MEDS: Multivitamin W/ Minerals 1 TAB PO SCH (09:03)
[2019-08-24] MEDS: Ferrous Sulfate 325 MG TAB PO SCH (09:03)
[2019-08-24] MEDS: Isosorbide Mononitrate (ER) 30 MG TAB PO SCH (09:04)
[2019-08-24] MEDS: Cyanocobalamin (Vitamin B-12) 1,000 MCG TAB PO SCH (09:04)
[2019-08-24] MEDS: Famotidine 20 MG TAB PO SCH ×2 (09:04→20:40)
[2019-08-24] MEDS: Torsemide 20 MG TAB PO SCH ×2 (09:08→14:28)
--- NOTE | 2019-08-24 17:46 | PRG ---
DATE OF SERVICE: 08/24/2019 SUBJECTIVE: The patient feels well, sitting up in the chair, understands that she has been approved by Physical Therapy and wound care to be discharged home on wound VAC and is ready and willing. [facility] has been consulted for her wound care and they will be here tomorrow to attend her outpatient [place] VAC. The only question is she has persistent elevated PT/INR on her home dose of 4 mg of warfarin and feels this may be due to her antibiotics she has been taking, but these are finished now. OBJECTIVE: VITAL SIGNS: Show temperature 96.4, pulse 85, respirations 18, O2 saturation 91% on room air. LUNGS: Clear. CARDIAC: Shows irregularly irregular rhythm. ABDOMEN: Soft and nontender. LABORATORY DATA: Sodium is 135, potassium 3.6, chloride 96, bicarb 24, BUN 18, creatinine 1.06. PT/INR is down slightly to 4.1, but still significantly elevated. ASSESSMENT: 1. Resolving abdominal wound, on wound VAC, transition to Wound Care. 2. Stable functioning colostomy. 3. Atrial fibrillation with rate control, but with excessive anticoagulation on home medications and being held at this time. 4. Diastolic heart failure, well compensated with stable renal function. PLAN: 1. Repeat PT/INR in the a.m. Hopefully, will be able to start back on 3 mg of warfarin. 2. [facility] to assess for outpatient wound VAC and hopefully discharge tomorrow the next day. 3. Diastolic heart failure, well compensated and will continue on these medications at home and follow up with her primary care physician . Job ID: [id number]
[2019-08-24] MEDS: traMADol HCl 50 MG TAB PO PRN (20:39)
[2019-08-24] MEDS: Melatonin 3 MG TAB PO PRN (20:41)
[2019-08-25] MEDS: ALPRAZolam 0.25 MG TAB PO PRN ×2 (02:07→20:51)
[2019-08-25] MEDS: Levothyroxine Sodium 100 MCG TAB PO SCH (05:27)
[2019-08-25 05:34] LABS: INR-International Normal Ratio 2.9; Prothrombin Time 30.1 SEC (12.0-14.7)
[2019-08-25] MEDS: Potassium Chloride 10 MEQ TAB PO SCH (08:55)
[2019-08-25] MEDS: Docusate 100 MG CAP PO SCH ×2 (09:03→20:50)
[2019-08-25] MEDS: Torsemide 20 MG TAB PO SCH ×2 (09:05→13:25)
[2019-08-25] MEDS: Famotidine 20 MG TAB PO SCH ×2 (09:05→20:50)
[2019-08-25] MEDS: Isosorbide Mononitrate (ER) 30 MG TAB PO SCH (09:05)
[2019-08-25] MEDS: Calcium Carbonate + Vit D 1 TAB PO SCH (09:05)
[2019-08-25] MEDS: Ferrous Sulfate 325 MG TAB PO SCH (09:06)
[2019-08-25] MEDS: Multivitamin W/ Minerals 1 TAB PO SCH (09:06)
[2019-08-25] MEDS: Magnesium Oxide 400 MG TAB PO SCH (09:07)
[2019-08-25] MEDS: Cyanocobalamin (Vitamin B-12) 1,000 MCG TAB PO SCH (09:07)
[2019-08-25] MEDS ORDERED: Warfarin Sodium 3 MG TAB PO SCH (18:00)
[2019-08-25] MEDS: traMADol HCl 50 MG TAB PO PRN (20:50)
--- NOTE | 2019-08-26 03:44 | DIS ---
DATE OF ADMISSION: 07/27/2019 DATE OF DISCHARGE: 08/26/2019 FINAL DIAGNOSES: 1. Chronic atrial fibrillation with rate controlled anticoagulation. 2. Ischemic cardiomyopathy with systolic congestive heart failure. 3. History of lower gastrointestinal bleed and subsequent colonic perforation. 4. History of feculent peritonitis requiring emergency sigmoid colostomy and wound VAC placement. 5. Severe deconditioning. 6. History of breast cancer. 7. Ejection fraction of 30%. HOSPITAL COURSE: The patient is a 73-year-old white female with a long history of severe systolic heart failure, atrial fibrillation, who developed lower GI bleed secondary to sigmoid diverticulitis subsequently perforated with feculent peritonitis requiring emergency sigmoid colostomy and wound VAC placement. She was transferred to [facility] on July 27 for continued wound care and monitoring her congestive heart failure and atrial fibrillation. She was very weak on admission, but slowly improved her strength. Her congestive heart failure was compensated well with diuretics and she was started on PT/OT. She did have problems with wound VAC initially nonfunctioning, but required redebridement per surgeon Dr. Hemant Lang several times in outpatient clinic and then wound VAC began to function well, and her wound began to heal rapidly. She progressed to the point she was independent in her ADLs and Physical Therapy felt she was stable to be discharged home. She did have a [place] VAC at home and felt she was able to care for this and therefore be discharged home to [facility] to continue the wound VAC. Her ostomy will be followed by her primary care physician, Dr. Valerio Haskins, and her surgeon Dr. Hemant Lang, and by the ostomy nurse at [facility]. MEDICATIONS: On discharge, she was taking medications of, 1. Tylenol as needed. 2. Colace 100 mg twice daily. 3. Famotidine 20 twice daily. 4. Ferrous sulfate 325 daily. 5. Imdur 30 mg daily. 6. Levothyroxine 100 mcg daily. 7. Magnesium 400 mg daily. 8. Melatonin 3 mg as needed. 9. Metoprolol 25 daily. 10. Pantoprazole 40 mg daily. 11. Potassium chloride 20 mEq daily. 12. Sertraline 200 mg daily. 13. Torsemide 20 mg twice daily. 14. Warfarin 3 mg daily. She will have PT/INR done next week by her primary care physician. LABORATORY DATA: [place] [address], hematocrit 36, hemoglobin 10. PT/INR 2.9. Sodium 135, potassium 3.6, chloride 96, bicarb 24, BUN 18, creatinine 1.06, BNP 981. Job ID: [id number]
[2019-08-26] MEDS: Levothyroxine Sodium 100 MCG TAB PO SCH (05:26)
[2019-08-26 06:04] LABS: INR-International Normal Ratio 1.9; Prothrombin Time 21.9 SEC (12.0-14.7)
[2019-08-26] MEDS: Calcium Carbonate + Vit D 1 TAB PO SCH (08:46)
[2019-08-26] MEDS: Docusate 100 MG CAP PO SCH (08:46)
[2019-08-26] MEDS: Multivitamin W/ Minerals 1 TAB PO SCH (08:46)
[2019-08-26] MEDS: Isosorbide Mononitrate (ER) 30 MG TAB PO SCH (08:47)
[2019-08-26] MEDS: Ferrous Sulfate 325 MG TAB PO SCH (08:47)
[2019-08-26] MEDS: Cyanocobalamin (Vitamin B-12) 1,000 MCG TAB PO SCH (08:48)
[2019-08-26] MEDS: Torsemide 20 MG TAB PO SCH (08:48)
[2019-08-26] MEDS: Famotidine 20 MG TAB PO SCH (08:48)
[2019-08-26] MEDS: Magnesium Oxide 400 MG TAB PO SCH (08:48)
[2019-08-26] MEDS: Potassium Chloride 10 MEQ TAB PO SCH (08:49)
[2019-08-26 13:31] VITALS: BP 133/69; TEMP 98.3
[2019-08-26] MEDS ORDERED: Warfarin Sodium 3 MG TAB PO SCH (17:00)
== END 2019-08-26 12:55 | disposition home health service (06) | DRG 949 ==
LOC: NAV ACUTE 18:02
PROVIDERS: ADMIT Internal Medicine; ATTEND Internal Medicine
DX: Z48.815 Encounter for surgical aftercare following surgery on the digestive system (principal); K65.9 Peritonitis, unspecified; J96.91 Respiratory failure, unspecified with hypoxia; I48.20 Chronic atrial fibrillation, unspecified; I50.42 Chronic combined systolic (congestive) and diastolic (congestive) heart failure; R53.81 Other malaise; I25.5 Ischemic cardiomyopathy; N18.3 Chronic kidney disease, stage 3 (moderate); I95.9 Hypotension, unspecified; F32.9 Major depressive disorder, single episode, unspecified; F41.9 Anxiety disorder, unspecified; E03.9 Hypothyroidism, unspecified; R42 Dizziness and giddiness; T42.8X5A Adverse effect of antiparkinsonism drugs and other central muscle-tone depressants, initial encounter; E87.6 Hypokalemia; Z79.01 Long term (current) use of anticoagulants; Z95.4 Presence of other heart-valve replacement
CPT/HCPCS: 36415; 71046; 80048; 80053; 83880; 85025; 85610; 87070; 87077; 87186; 87205; 97602; Q0162